=== PATIENT | female | born 1945 | race Caucasian/White ===

== ENCOUNTER 2022-05-12 22:19 | Observation (INO) | payer MEDICARE ==
[2022-05-12] MEDS ORDERED: Sodium Chloride 0.9% 1000 ML 1,000 ML IV SCH (23:30)
--- NOTE | 2022-05-12 23:35 | ERPHSYRPT ---
- History of Present Illness Time Seen by Provider: 05/12/22 22:26 Source: patient, family Exam Limitations: no limitations Patient Subjective Stated Complaint: pt states "I was sitting in the chair and was getting up to the bathroom. I didn't feel well and had to sit back down. 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 As per patient/ she was sitting on the table and working on her iPad, started to feel warm/flushed followed by weakness all over and went down almost passed out but her got her. She again had another episode lasting for 10 minutes when she was completely out. No seizure-like act ivity noticed. She was awake alert and oriented immediately after with no confusion, numbness tingling or focal weakness. She reports she felt as if her blood sugar was low but it was 95. She denies any chest pain palpitations, shortness of breath, feeling dizzy lightheaded, blurry vision before or after the episode. No nausea or vomiting. She is not complaining of anything but mild headache all over. Timing/Duration: hour(s) (1), sudden, improved Severity: moderate Character of Deficits: none Deficits: no difficulties Baseline/Normal Cognition: alert oriented x 3 Current Cognition: alert oriented x 3 Baseline Gait: walks w/o assistance Associated Symptoms: loss of consciousness, headache, No confusion, No fever, No nausea, No vomiting, No weakness, No insomnia, No muscle spasms, No n umbness/tingling in legs/feet, No paresthesia, No ringing in ears, No seizures, No slurred speech, No trouble walking, No vision changes, No chest pain Allergies/Adverse Reactions: No Known Drug Allergies Allergy (Unverified 05/12/22 22:56) Hx Tetanus, Diphtheria Vaccination/Date Given: No Hx Influenza Vaccination/Date Given: Yes Hx Pneumococcal Vaccination/Date Given: No Immunizations Up to Date: No Travel Risk - International Travel Have you traveled outside of the country in past 3 weeks: No - Coronavirus Screening Are you exhibiting any of the following symptoms?: No Close contact with a COVID-19 positive Pt in past 14-21 Days: No - Vaccine Status Have you recieved a Covid-19 vaccination: Yes 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: [employer] - Vaccination Dates Date of 2cond Vaccination (if applicable): 2020 - Review of Systems Constitutional: Fatigue, Weakness Eyes: No Symptoms Ears, Nose, & Throat: No Symptoms Respiratory: No Symptoms Cardiac: No Symptoms Abdominal/Gastrointestinal: No Symptoms Genitourinary Symptoms: No Symptoms Musculoskeletal: No Symptoms Skin: No Symptoms Neurological: Headache Psychological: No Symptoms Endocrine: No Symptoms Hematologic/Lymphatic: No Symptoms Immunological/Allergic: No Symptoms - Past Medical History Pertinent Past Medical History: Yes Neurological History: No Pertinent History ENT History: Cataracts Cardiac History: High Cholesterol, Hypertension Respiratory History: No Pertinent History Endocrine Medical History: Diabetes Type II Musculoskeletal History: No Pertinent History GI Medical History: No Pertinent History History: No Pertinent History Psycho-Social History: No Pertinent History Female Reproductive Disorders: No Pertinent History - Past Surgical History Past Surgical History: Yes Musculoskeletal: Orthopedic Surgery Female Surgical History: Hysterectomy Other Surgical History: artery bipass, neck surgery - Social History Smoking Status: Smoker, status unknown Exposure to second hand smoke: No Drug Use: none Patient Lives Alone: No - Nursing Vital Signs Nursing Vital Signs: Initial Vital Signs Temperature 96.8 F 05/12/22 22:57 Pulse Rate 76 05/12/22 22:57 Respiratory Rate 18 05/12/22 22:57 Blood Pressure 131/86 05/12/22 22:57 O2 Sat by Pulse Oximetry 99 05/12/22 22:57 Pain Scale Pain Intensity 0 - Neri Coma Scale Best Eye Response (Neri): (4) open spontaneously Best Verbal Response ([place]): (5) oriented Best Motor Response (Neri): (6) obeys commands [place] Total: 15 - Physical Exam General Appearance: no apparent distress, alert Eye Exam: bilateral eye: normal inspection, PERRL, EOMI Ears, Nose, Throat Exam: normal ENT inspection, TMs normal, pharynx normal, moist mucous membranes Neck Exam: normal inspection, non-tender, supple, full range of motion Respiratory: normal breath sounds, lungs clear Cardiovascular: regular rate/rhythm, normal heart sounds Gastrointestinal: soft, normal bowel sounds, No tenderness Back Exam: normal inspection, normal range of motion Extremity Exam: normal inspection, normal range of motion Mental Status: alert, oriented x 3, cooperative, 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 Exam: normal hearing, normal speech, PERRL Coordination/Gait: normal finger to nose, normal cerebellar function Motor/Sensory: no motor deficit, no sensory deficit, no pronator drift, negative Babinski's sign DTR: bicep (R): 2+, bicep (L): 2+, knee (R): 2+, knee (L): 2+ Skin Exam: normal color SpO2 Interpretation: normal SpO2: 99 O2 Delivery: Room Air - Course EKG Interpreted by Me: RATE (65), Sinus Rhythm, NORMAL AXIS, NORMAL INTERVALS, NORMAL QRS Ordered Tests: Active Orders 24 hr Category Date Time Status Nutritionist STAT Care 05/12/22 23:19 Active EKG-ER Only STAT Care 05/12/22 23:18 Active IV Insertion STAT Care 05/12/22 23:18 Active Orthostatic Vital Signs STAT Care 05/12/22 23:18 Active POCT Glucose Check STAT Care 05/12/22 23:18 Active CERVICAL SPINE WO CONTRAST [CT] Routine Exams 05/13/22 00:45 Taken CHEST 1 VIEW (PORTABLE) Routine Exams 05/13/22 00:33 Taken HEAD WITHOUT CONTRAST [CT] Stat Exams 05/12/22 23:18 Taken BLOOD CULTURE Stat Lab 05/12/22 23:35 Received BNP [NT PRO BNP] Stat Lab 05/12/22 23:19 Completed CBC W DIFF Stat Lab 05/12/22 23:20 Completed CMP Stat Lab 05/12/22 23:19 Completed Lactic Acid Stat Lab 05/12/22 23:19 Ordered MAG [MAGNESIUM] Stat Lab 05/12/22 23:19 Completed POCT GLUCOSE Stat Lab 05/12/22 23:15 Completed TROPONIN Q3H Lab 05/12/22 23:30 Completed TROPONIN Q3H Lab 05/13/22 01:27 Received TROPONIN Q3H Lab 05/13/22 05:30 Ordered Medication Summary Generic Name Dose Route Start Last Admin Trade Name Freq PRN Reason Stop Dose Admin Sodium Chloride 1,000 mls @ 125 mls/hr 05/12/22 23:30 05/12/22 23:32 Sodium Chloride 0.9% 1000 Ml IV 06/11/22 23:29 125 mls/hr .Q8H JUAN LUIS Administration Lab/Rad Data: Laboratory Result Diagrams 05/12/22 23:20 05/12/22 23:19 Laboratory Results 05/12/22 05/12/22 05/12/22 Range/Units 23:44 23:30 23:20 WBC 10.7 H (4.0-10.5) x10^3/uL RBC 3.60 L (4.1-5.4) x10^6/uL Hgb 11.6 L (12.0-16.0) g/dL Hct 35.1 (35-47) % MCV 97.5 (78-100) fL MCH 32.2 H (26-32) pg MCHC 33.0 (32-36) g/dL RDW 11.5 (11.5-14.0) % Plt Count 219 (150-450) x10^3/uL MPV 9.5 (7.5-11.0) fL Gran % 66.9 H (36.0-66.0) % Immature Gran % (Auto) 0.4 (0.00-0.4) % Nucleat RBC Rel Count 0.0 (0.00-0.1) % Eos # (Auto) 0.22 (0-0.5) x10^3/uL Immature Gran # (Auto) 0.04 H (0.00-0.03) x10^3u/L Absolute Lymphs (auto) 2.20 (1.0-4.6) x10^3/uL Absolute Monos (auto) 1.04 (0.0-1.3) x10^3/uL Absolute Nucleated RBC 0.00 (0.00-0.01) x10^3u/L Lymphocytes % 20.5 L (24.0-44.0) % Monocytes % 9.7 (0.0-12.0) % Eosinophils % 2.1 (0.00-5.0) % Basophils % 0.4 (0.0-0.4) % Absolute Granulocytes 7.19 H (1.4-6.9) x10^3/uL Basophils # 0.04 (0-0.4) x10^3/uL Sodium (137-145) mmol/L Potassium (3.5-5.1) mmol/L Chloride (98-107) mmol/L Carbon Dioxide (22-30) mmol/L Anion Gap (5-15) MEQ/L BUN (7-17) mg/dL Creatinine (0.52-1.04) mg/dL Estimated GFR ML/MIN Glucose (74-106) mg/dL POC Glucometer (74 to 106) mg/dL Calcium (8.4-10.2) mg/dL Magnesium (1.6-2.3) mg/dL Total Bilirubin (0.2-1.3) mg/dL AST (14-36) U/L ALT (0-35) U/L Alkaline Phosphatase (38-126) U/L Troponin I < 0.012 (0.000-0.034) ng/mL NT-Pro-B Natriuret Pep (0-1800) pg/mL Serum Total Protein (6.3-8.2) g/dL Albumin (3.5-5.0) g/dL Influenza Type A Ag NEGATIVE (NEGATIVE) Influenza Type B Ag NEGATIVE (NEGATIVE) RSV (PCR) NEGATIVE (Negative) SARS-CoV-2 (PCR) NEGATIVE (NEGATIVE) 05/12/22 05/12/22 Range/Units 23:19 23:15 WBC (4.0-10.5) x10^3/uL RBC (4.1-5.4) x10^6/uL Hgb (12.0-16.0) g/dL Hct (35-47) % MCV (78-100) fL MCH (26-32) pg MCHC (32-36) g/dL RDW (11.5-14.0) % Plt Count (150-450) x10^3/uL MPV (7.5-11.0) fL Gran % (36.0-66.0) % Immature Gran % (Auto) (0.00-0.4) % Nucleat RBC Rel Count (0.00-0.1) % Eos # (Auto) (0-0.5) x10^3/uL Immature Gran # (Auto) (0.00-0.03) x10^3u/L Absolute Lymphs (auto) (1.0-4.6) x10^3/uL Absolute Monos (auto) (0.0-1.3) x10^3/uL Absolute Nucleated RBC (0.00-0.01) x10^3u/L Lymphocytes % (24.0-44.0) % Monocytes % (0.0-12.0) % Eosinophils % (0.00-5.0) % Basophils % (0.0-0.4) % Absolute Granulocytes (1.4-6.9) x10^3/uL Basophils # (0-0.4) x10^3/uL Sodium 136 L (137-145) mmol/L Potassium 4.0 (3.5-5.1) mmol/L Chloride 103 (98-107) mmol/L Carbon Dioxide 29 (22-30) mmol/L Anion Gap 8.9 (5-15) MEQ/L BUN 21 H (7-17) mg/dL Creatinine 0.74 (0.52-1.04) mg/dL Estimated GFR > 60.0 ML/MIN Glucose 174 H (74-106) mg/dL POC Glucometer 147 H (74 to 106) mg/dL Calcium 9.1 (8.4-10.2) mg/dL Magnesium 1.9 (1.6-2.3) mg/dL Total Bilirubin 0.40 (0.2-1.3) mg/dL AST 25 (14-36) U/L ALT 29 (0-35) U/L Alkaline Phosphatase 63 (38-126) U/L Troponin I (0.000-0.034) ng/mL NT-Pro-B Natriuret Pep 68.2 (0-1800) pg/mL Serum Total Protein 6.5 (6.3-8.2) g/dL Albumin 4.1 (3.5-5.0) g/dL Influenza Type A Ag (NEGATIVE) Influenza Type B Ag (NEGATIVE) RSV (PCR) (Negative) SARS-CoV-2 (PCR) (NEGATIVE) - Progress Progress: improved Progress Note: 05/13/22 01:43 76-year-old is evaluated for syncopal episode prior to arrival. She has a nonfocal neuro exam. Obtain CT head and cervical spine which are negative for any acute findings. Grossly unremarkable work-up including orthostatics. Started on gentle hydration. EKG normal sinus rhythm with no acute ischemic changes and negative initial troponins. Chest x-ray no obvious infiltrate, questionable airspace disease on the right lower quadrant but patient is not in any distress and lung sounds clear to auscultation. Do not know the exact cause of her syncope, needs further work-up, discussed with Dr. Woodruff and patient is excepted for admission. Discussed with : Keith Will see patient in: hospital (observation) Counseled pt/family regarding: lab results, diagnosis, rad results, smoking cessation - Departure Departure Disposition: Observation Clinical Impression: Syncope and collapse Condition: Stable Critical Care Time: No Referrals: VISHNU PROCTOR [Primary Care Provider] - Follow up/PCP as directed
[2022-05-12 23:44] LABS: Absolute Neutrophil Ct (ANC) 7.19 x10^3/uL (1.4-6.9); Basophil (Absolute #) 0.04 x10^3/uL (0-0.4); Eosinophil % 2.1 % (0.00-5.0); Eosinophil (Absolute #) 0.22 x10^3/uL (0-0.5); Hematocrit 35.1 % (35-47); Hemoglobin 11.6 g/dL (12.0-16.0); Lymphocytes % 20.5 % (24.0-44.0); Mean Cell Volume 97.5 fL (78-100); Mean Corpuscular Hemoglobin 32.2 pg (26-32); Mean Platelet Volume 9.5 fL (7.5-11.0); Monocyte (Absolute #) 1.04 x10^3/uL (0.0-1.3); Monocytes % 9.7 % (0.0-12.0); Neutrophil % 66.9 % (36.0-66.0); Platelet Count 219 x10^3/uL (150-450); Red Cell Distribution Width 11.5 % (11.5-14.0); White Blood Count 10.7 x10^3/uL (4.0-10.5)
[2022-05-13 00:05] LABS: ALBUMIN 4.1 g/dL (3.5-5.0); ALKALINE PHOSPHATASE 63 U/L (38-126); ANION GAP 8.9 MEQ/L (5-15); BLOOD UREA NITROGEN 21 mg/dL (7-17); CHLORIDE 103 mmol/L (98-107); Calcium 9.1 mg/dL (8.4-10.2); Carbon Dioxide 29 mmol/L (22-30); Creatinine 1 0.74 mg/dL (0.52-1.04); EST GLOMERULAR FILTRATION RATE > 60.0 ML/MIN; Glucose 174 mg/dL (74-106); MAGNESIUM 1.9 mg/dL (1.6-2.3); NT PRO BNP 68.2 pg/mL (0-1800); SGOT/AST 25 U/L (14-36); SGPT/ALT 29 U/L (0-35); SODIUM 136 mmol/L (137-145); Total Protein 6.5 g/dL (6.3-8.2)
[2022-05-13 00:23] LABS: INFLUENZA A NEGATIVE (NEGATIVE); INFLUENZA B NEGATIVE (NEGATIVE); RESPIRATORY SYNCTIAL VIRUS NEGATIVE (Negative); SARS-CoV-2 Xpert Express NEGATIVE (NEGATIVE)
[2022-05-13 02:30] LABS: Appearance CLEAR (CLEAR); Bilirubin NEGATIVE (NEGATIVE); Dipstick done @ ? MAIN LAB; Glucose NEGATIVE (NEGATIVE); Ketones NEGATIVE (NEGATIVE); Nitrite NEGATIVE (NEGATIVE); Protein,Urine Dip NEGATIVE (Negative); RBC NEGATIVE Ery/ul (0-5); Specific Gravity 1.025 (1.005-1.025); Urobilinogen 0.2 mg/dL (0-1)
[2022-05-13] MEDS ORDERED: TYLENOL 325 MG PO PRN (02:33)
[2022-05-13] MEDS ORDERED: DUONEB 0.5-3 MG/3 ml Neb IH PRN (02:33)
[2022-05-13] MEDS ORDERED: HUMALOG SQ PRN (02:33)
[2022-05-13 02:36] LABS: Epithelial Cells RARE /HPF (FEW); Mucus SLIGHT /HPF (NEGATIVE); RBC 0-2 /HPF (0-2)
[2022-05-13 02:38] LABS: Crystals Unidentified >100 /HPF (NEGATIVE); Urine Cultured Indicated? NO
[2022-05-13 04:22] VITALS: PULSE 66
[2022-05-13 06:00] LABS: Absolute Neutrophil Ct (ANC) 4.18 x10^3/uL (1.4-6.9); Basophil (Absolute #) 0.03 x10^3/uL (0-0.4); Eosinophil % 1.9 % (0.00-5.0); Eosinophil (Absolute #) 0.15 x10^3/uL (0-0.5); Hematocrit 32.7 % (35-47); Hemoglobin 10.8 g/dL (12.0-16.0); Lymphocyte (Absolute #) 2.57 x10^3/uL (1.0-4.6); Lymphocytes % 33.2 % (24.0-44.0); Mean Cell Volume 95.6 fL (78-100); Mean Corpuscular Hemoglobin 31.6 pg (26-32); Mean Platelet Volume 9.4 fL (7.5-11.0); Monocyte (Absolute #) 0.77 x10^3/uL (0.0-1.3); Neutrophil % 54.1 % (36.0-66.0); Platelet Count 198 x10^3/uL (150-450); Red Blood Count 3.42 x10^6/uL (4.1-5.4); Red Cell Distribution Width 11.4 % (11.5-14.0); White Blood Count 7.7 x10^3/uL (4.0-10.5)
[2022-05-13 06:22] LABS: ALBUMIN 3.7 g/dL (3.5-5.0); ALKALINE PHOSPHATASE 49 U/L (38-126); ANION GAP 8.5 MEQ/L (5-15); BLOOD UREA NITROGEN 16 mg/dL (7-17); CHLORIDE 108 mmol/L (98-107); Calcium 8.5 mg/dL (8.4-10.2); Carbon Dioxide 25 mmol/L (22-30); Creatinine 1 0.54 mg/dL (0.52-1.04); EST GLOMERULAR FILTRATION RATE > 60.0 ML/MIN; Glucose 105 mg/dL (74-106); Potassium 3.7 mmol/L (3.5-5.1); SGOT/AST 22 U/L (14-36); SGPT/ALT 25 U/L (0-35); SODIUM 138 mmol/L (137-145); Total Protein 6.1 g/dL (6.3-8.2)
--- NOTE | 2022-05-13 06:35 | XRAY ---
Indication: Syncope. Comparison: None Portable chest hyperinflated with mild right infiltrate/atelectasis. Remaining heart and lungs unremarkable. Bony thorax intact with osteopenia, degenerative changes, and partially visualized cervical fusion hardware.
--- NOTE | 2022-05-13 06:35 | XRAY ---
Indication: Syncope. Status post fall. Multiple contiguous axial images obtained through the head without contrast. Comparison: None Age-appropriate global atrophy and mild periventricular degenerative micro-ischemia bilaterally. No acute intracranial hemorrhage, abnormal extra-axial fluid collection, or mass effect. Fourth ventricle is midline without hydrocephalus. Bony calvarium intact. Visualized paranasal sinuses and mastoid air cells are clear. Impression: Nonacute senile brain. Comment: Preliminary interpretation made by [facility]. No critical discrepancy.
--- NOTE | 2022-05-13 06:37 | XRAY ---
Indication: Syncope. Status post fall. Multiple contiguous axial images obtained through the head without contrast. Comparison: None Age-related osteopenia. Axial images negative for acute fracture, suspicious bone lesions, or spinal canal stenosis. Minimal C6-C7 degenerative endplate spurring and mild multilevel bilateral degenerative facet arthropathy. Also lentil axial degenerative arthropathy. Previous C4-C6 fusion with anterior plate/screws. Sagittal and coronal reformatted images demonstrate normal alignment with C6-C7 disc space narrowing. No acute compression fracture, subluxation, or jump facet. Normal appearing craniocervical junction. Visualized noncontrasted soft tissues are unremarkable. Impression: 1. Negative acute fracture/subluxation. 2. Multilevel degenerative changes, osteopenia, and C4-C6 anterior fusion. Comment: Preliminary interpretation made by [facility]. No critical discrepancy.
--- NOTE | 2022-05-13 08:08 | PCM.SSS ---
History of Present Illness - Chief Complaint Chief Complaint: SYNCOPE History of Present Illness: is a 76 year old female patient of Dr Proctor, she came to the ER for evaluation after a syncopal episode at home, it was witness by her . She began feeling dizzy and lightheaded like her blood sugar was low, she took a spoon of peanut butter to eat and sat back down, she had a brief loss of consciousness, no seizure. TX has been ruled out, she has had no episodes on telemetry and insists to go home today. She follows with Dr Elaine for routine care but no history of CAD in the past per patient. - Review of Systems Cardiac: Syncope, No Chest Pain, No Palpitations Abdominal/Gastrointestinal: No Abdominal Pain, No Nausea, No Vomiting, No Diarrhea Genitourinary Symptoms: No Dysuria All Other Systems: Reviewed and Negative Medications & Allergies Home Medications: Home Medication List Alendronate Sodium [Fosamax] 70 mg PO UD 05/13/22 [History Confirmed 05/13/22] Aspirin EC 81 mg [Ecotrin 81 mg] 81 mg PO DAILY 05/13/22 [History Confirmed 05/13/22] Atorvastatin Calcium 40 mg PO HS 05/13/22 [History Confirmed 05/13/22] Isosorbide Dinitrate 30 mg PO DAILY 05/13/22 [History Confirmed 05/13/22] Lisinopril 10 mg [Zestril 10 MG] 10 mg PO DAILY 05/13/22 [History Confirmed 05/13/22] Multivitamin 1 each PO DAILY 05/13/22 [History Confirmed 05/13/22] Non-Formulary Drug [Non-Formulary Item] 1 tab PO DAILY 05/13/22 [History Confirmed 05/13/22] Allergies/Adverse Reactions: Allergies Allergy/AdvReac Type Severity Reaction Status Date / Time No Known Drug Allergies Allergy Verified 05/13/22 03:22 - Past Medical History Past Medical History: Yes Neurological History: No Pertinent History ENT History: Cataracts Cardiac History: High Cholesterol, Hypertension Respiratory History: No Pertinent History Endocrine Medical History: Diabetes Type II Musculoskelatal History: Arthritis GI Medical History: No Pertinent History History: No Pertinent History Pyscho-Social History: No Pertinent History Reproductive Disorders: No Pertinent History - Female History Are you now?: No - Past Surgical History Past Surgical History: Yes Neuro Surgical History: No Pertinent History Cardiac History: Vascular Surgery Respiratory Surgery: No Pertinent History GI Surgical History: No Pertinent History Genitourinary Surgical Hx: No Pertinent History Musculskeletal Surgical Hx: Orthopedic Surgery Female Surgical History: Hysterectomy Other Surgical History: TOTAL HYSTERECTOMY 2001? artery bipass LEFT FEMORAL 2002? (HAD A BLOCK), neck surgery DISK ISSUES - Social History Smoking Status: Current every day smoker How long have you smoked: 35 YEARS Exposure to second hand smoke: Yes Alcohol: None Drug Use: none - Physical Exam Vital Signs: Vital Signs - 24 hr Temp Pulse Resp BP Pulse Ox 05/13/22 04:00 98 F 66 18 164/70 96 05/13/22 03:55 65 18 93 L 05/13/22 03:17 97.5 F 73 20 169/69 95 05/13/22 02:00 96.8 F 70 151/64 96 05/13/22 01:46 99 05/13/22 00:00 68 129/119 96 05/12/22 23:31 67 22 143/52 99 05/12/22 22:57 96.8 F 76 18 131/86 99 General Appearance: no apparent distress Neurologic Exam: alert, oriented x 3 Respiratory Exam: normal breath sounds, lungs clear, No respiratory distress Cardiovascular Exam: regular rate/rhythm, normal heart sounds, normal peripheral pulses Gastrointestinal/Abdomen Exam: soft Extremity Exam: normal inspection, normal range of motion, pelvis stable Skin Exam: normal color, warm, dry, No rash Results - Labs Lab/Micro Results: Lab Results-Last 24 Hours 05/12/22 05/12/22 05/12/22 Range/Units 01:37 23:15 23:19 WBC (4.0-10.5) x10^3/uL RBC (4.1-5.4) x10^6/uL Hgb (12.0-16.0) g/dL Hct (35-47) % MCV (78-100) fL MCH (26-32) pg MCHC (32-36) g/dL RDW (11.5-14.0) % Plt Count (150-450) x10^3/uL MPV (7.5-11.0) fL Gran % (36.0-66.0) % Immature Gran % (Auto) (0.00-0.4) % Nucleat RBC Rel Count (0.00-0.1) % Eos # (Auto) (0-0.5) x10^3/uL Immature Gran # (Auto) (0.00-0.03) x10^3u/L Absolute Lymphs (auto) (1.0-4.6) x10^3/uL Absolute Monos (auto) (0.0-1.3) x10^3/uL Absolute Nucleated RBC (0.00-0.01) x10^3u/L Lymphocytes % (24.0-44.0) % Monocytes % (0.0-12.0) % Eosinophils % (0.00-5.0) % Basophils % (0.0-0.4) % Absolute Granulocytes (1.4-6.9) x10^3/uL Basophils # (0-0.4) x10^3/uL Sodium 136 L (137-145) mmol/L Potassium 4.0 (3.5-5.1) mmol/L Chloride 103 (98-107) mmol/L Carbon Dioxide 29 (22-30) mmol/L Anion Gap 8.9 (5-15) MEQ/L BUN 21 H (7-17) mg/dL Creatinine 0.74 (0.52-1.04) mg/dL Estimated GFR > 60.0 ML/MIN Glucose 174 H (74-106) mg/dL POC Glucometer 147 H (74 to 106) mg/dL Lactic Acid (0.4-2.0) Calcium 9.1 (8.4-10.2) mg/dL Magnesium 1.9 (1.6-2.3) mg/dL Total Bilirubin 0.40 (0.2-1.3) mg/dL AST 25 (14-36) U/L ALT 29 (0-35) U/L Alkaline Phosphatase 63 (38-126) U/L Troponin I (0.000-0.034) ng/mL NT-Pro-B Natriuret Pep 68.2 (0-1800) pg/mL Serum Total Protein 6.5 (6.3-8.2) g/dL Albumin 4.1 (3.5-5.0) g/dL Urinalys Dipstick Clnc MAIN LAB Urine Color YELLOW (YELLOW) Urine Appearance CLEAR (CLEAR) Urine pH 6.0 (5-6) Ur Specific [place] 1.025 (1.005-1.025) POC Urine Protein Conf NEGATIVE (Negative) Urine Ketones NEGATIVE (NEGATIVE) Urine Nitrite NEGATIVE (NEGATIVE) Urine Bilirubin NEGATIVE (NEGATIVE) Urine Urobilinogen 0.2 (0-1) mg/dL Urine Leukocytes TRACE (NEGATIVE) Urine WBC (Auto) 3-5 (0-5) /HPF Urine RBC (Auto) 0-2 (0-2) /HPF U Epithel Cells (Auto) RARE (FEW) /HPF Urine Bacteria (Auto) NONE (NEGATIVE) /HPF Urine RBC NEGATIVE (0-5) Jovan/ul Unidentified Crystals >100 (NEGATIVE) /HPF Urine Mucus (Auto) SLIGHT (NEGATIVE) /HPF Ur Culture Indicated? NO Urine Glucose NEGATIVE (NEGATIVE) mg/dL Influenza Type A Ag (NEGATIVE) Influenza Type B Ag (NEGATIVE) RSV (PCR) (Negative) SARS-CoV-2 (PCR) (NEGATIVE) 05/12/22 05/12/22 05/12/22 Range/Units 23:20 23:30 23:44 WBC 10.7 H (4.0-10.5) x10^3/uL RBC 3.60 L (4.1-5.4) x10^6/uL Hgb 11.6 L (12.0-16.0) g/dL Hct 35.1 (35-47) % MCV 97.5 (78-100) fL MCH 32.2 H (26-32) pg MCHC 33.0 (32-36) g/dL RDW 11.5 (11.5-14.0) % Plt Count 219 (150-450) x10^3/uL MPV 9.5 (7.5-11.0) fL Gran % 66.9 H (36.0-66.0) % Immature Gran % (Auto) 0.4 (0.00-0.4) % Nucleat RBC Rel Count 0.0 (0.00-0.1) % Eos # (Auto) 0.22 (0-0.5) x10^3/uL Immature Gran # (Auto) 0.04 H (0.00-0.03) x10^3u/L Absolute Lymphs (auto) 2.20 (1.0-4.6) x10^3/uL Absolute Monos (auto) 1.04 (0.0-1.3) x10^3/uL Absolute Nucleated RBC 0.00 (0.00-0.01) x10^3u/L Lymphocytes % 20.5 L (24.0-44.0) % Monocytes % 9.7 (0.0-12.0) % Eosinophils % 2.1 (0.00-5.0) % Basophils % 0.4 (0.0-0.4) % Absolute Granulocytes 7.19 H (1.4-6.9) x10^3/uL Basophils # 0.04 (0-0.4) x10^3/uL Sodium (137-145) mmol/L Potassium (3.5-5.1) mmol/L Chloride (98-107) mmol/L Carbon Dioxide (22-30) mmol/L Anion Gap (5-15) MEQ/L BUN (7-17) mg/dL Creatinine (0.52-1.04) mg/dL Estimated GFR ML/MIN Glucose (74-106) mg/dL POC Glucometer (74 to 106) mg/dL Lactic Acid (0.4-2.0) Calcium (8.4-10.2) mg/dL Magnesium (1.6-2.3) mg/dL Total Bilirubin (0.2-1.3) mg/dL AST (14-36) U/L ALT (0-35) U/L Alkaline Phosphatase (38-126) U/L Troponin I < 0.012 (0.000-0.034) ng/mL NT-Pro-B Natriuret Pep (0-1800) pg/mL Serum Total Protein (6.3-8.2) g/dL Albumin (3.5-5.0) g/dL Urinalys Dipstick Clnc Urine Color (YELLOW) Urine Appearance (CLEAR) Urine pH (5-6) Ur Specific [place] (1.005-1.025) POC Urine Protein Conf (Negative) Urine Ketones (NEGATIVE) Urine Nitrite (NEGATIVE) Urine Bilirubin (NEGATIVE) Urine Urobilinogen (0-1) mg/dL Urine Leukocytes (NEGATIVE) Urine WBC (Auto) (0-5) /HPF Urine RBC (Auto) (0-2) /HPF U Epithel Cells (Auto) (FEW) /HPF Urine Bacteria (Auto) (NEGATIVE) /HPF Urine RBC (0-5) Jovan/ul Unidentified Crystals (NEGATIVE) /HPF Urine Mucus (Auto) (NEGATIVE) /HPF Ur Culture Indicated? Urine Glucose (NEGATIVE) mg/dL Influenza Type A Ag NEGATIVE (NEGATIVE) Influenza Type B Ag NEGATIVE (NEGATIVE) RSV (PCR) NEGATIVE (Negative) SARS-CoV-2 (PCR) NEGATIVE (NEGATIVE) 05/13/22 05/13/22 05/13/22 Range/Units 01:27 02:15 05:59 WBC (4.0-10.5) x10^3/uL RBC (4.1-5.4) x10^6/uL Hgb (12.0-16.0) g/dL Hct (35-47) % MCV (78-100) fL MCH (26-32) pg MCHC (32-36) g/dL RDW (11.5-14.0) % Plt Count (150-450) x10^3/uL MPV (7.5-11.0) fL Gran % (36.0-66.0) % Immature Gran % (Auto) (0.00-0.4) % Nucleat RBC Rel Count (0.00-0.1) % Eos # (Auto) (0-0.5) x10^3/uL Immature Gran # (Auto) (0.00-0.03) x10^3u/L Absolute Lymphs (auto) (1.0-4.6) x10^3/uL Absolute Monos (auto) (0.0-1.3) x10^3/uL Absolute Nucleated RBC (0.00-0.01) x10^3u/L Lymphocytes % (24.0-44.0) % Monocytes % (0.0-12.0) % Eosinophils % (0.00-5.0) % Basophils % (0.0-0.4) % Absolute Granulocytes (1.4-6.9) x10^3/uL Basophils # (0-0.4) x10^3/uL Sodium (137-145) mmol/L Potassium (3.5-5.1) mmol/L Chloride (98-107) mmol/L Carbon Dioxide (22-30) mmol/L Anion Gap (5-15) MEQ/L BUN (7-17) mg/dL Creatinine (0.52-1.04) mg/dL Estimated GFR ML/MIN Glucose (74-106) mg/dL POC Glucometer (74 to 106) mg/dL Lactic Acid 1.9 (0.4-2.0) Calcium (8.4-10.2) mg/dL Magnesium (1.6-2.3) mg/dL Total Bilirubin (0.2-1.3) mg/dL AST (14-36) U/L ALT (0-35) U/L Alkaline Phosphatase (38-126) U/L Troponin I < 0.012 < 0.012 (0.000-0.034) ng/mL NT-Pro-B Natriuret Pep (0-1800) pg/mL Serum Total Protein (6.3-8.2) g/dL Albumin (3.5-5.0) g/dL Urinalys Dipstick Clnc Urine Color (YELLOW) Urine Appearance (CLEAR) Urine pH (5-6) Ur Specific [place] (1.005-1.025) POC Urine Protein Conf (Negative) Urine Ketones (NEGATIVE) Urine Nitrite (NEGATIVE) Urine Bilirubin (NEGATIVE) Urine Urobilinogen (0-1) mg/dL Urine Leukocytes (NEGATIVE) Urine WBC (Auto) (0-5) /HPF Urine RBC (Auto) (0-2) /HPF U Epithel Cells (Auto) (FEW) /HPF Urine Bacteria (Auto) (NEGATIVE) /HPF Urine RBC (0-5) Jovan/ul Unidentified Crystals (NEGATIVE) /HPF Urine Mucus (Auto) (NEGATIVE) /HPF Ur Culture Indicated? Urine Glucose (NEGATIVE) mg/dL Influenza Type A Ag (NEGATIVE) Influenza Type B Ag (NEGATIVE) RSV (PCR) (Negative) SARS-CoV-2 (PCR) (NEGATIVE) 05/13/22 05/13/22 05/13/22 Range/Units 05:59 05:59 07:45 WBC 7.7 (4.0-10.5) x10^3/uL RBC 3.42 L (4.1-5.4) x10^6/uL Hgb 10.8 L (12.0-16.0) g/dL Hct 32.7 L (35-47) % MCV 95.6 (78-100) fL MCH 31.6 (26-32) pg MCHC 33.0 (32-36) g/dL RDW 11.4 L (11.5-14.0) % Plt Count 198 (150-450) x10^3/uL MPV 9.4 (7.5-11.0) fL Gran % 54.1 (36.0-66.0) % Immature Gran % (Auto) 0.4 (0.00-0.4) % Nucleat RBC Rel Count 0.0 (0.00-0.1) % Eos # (Auto) 0.15 (0-0.5) x10^3/uL Immature Gran # (Auto) 0.03 (0.00-0.03) x10^3u/L Absolute Lymphs (auto) 2.57 (1.0-4.6) x10^3/uL Absolute Monos (auto) 0.77 (0.0-1.3) x10^3/uL Absolute Nucleated RBC 0.00 (0.00-0.01) x10^3u/L Lymphocytes % 33.2 (24.0-44.0) % Monocytes % 10.0 (0.0-12.0) % Eosinophils % 1.9 (0.00-5.0) % Basophils % 0.4 (0.0-0.4) % Absolute Granulocytes 4.18 (1.4-6.9) x10^3/uL Basophils # 0.03 (0-0.4) x10^3/uL Sodium 138 (137-145) mmol/L Potassium 3.7 (3.5-5.1) mmol/L Chloride 108 H (98-107) mmol/L Carbon Dioxide 25 (22-30) mmol/L Anion Gap 8.5 (5-15) MEQ/L BUN 16 (7-17) mg/dL Creatinine 0.54 (0.52-1.04) mg/dL Estimated GFR > 60.0 ML/MIN Glucose 105 (74-106) mg/dL POC Glucometer 90 (74 to 106) mg/dL Lactic Acid (0.4-2.0) Calcium 8.5 (8.4-10.2) mg/dL Magnesium (1.6-2.3) mg/dL Total Bilirubin 0.40 (0.2-1.3) mg/dL AST 22 (14-36) U/L ALT 25 (0-35) U/L Alkaline Phosphatase 49 (38-126) U/L Troponin I (0.000-0.034) ng/mL NT-Pro-B Natriuret Pep (0-1800) pg/mL Serum Total Protein 6.1 L (6.3-8.2) g/dL Albumin 3.7 (3.5-5.0) g/dL Urinalys Dipstick Clnc Urine Color (YELLOW) Urine Appearance (CLEAR) Urine pH (5-6) Ur Specific [place] (1.005-1.025) POC Urine Protein Conf (Negative) Urine Ketones (NEGATIVE) Urine Nitrite (NEGATIVE) Urine Bilirubin (NEGATIVE) Urine Urobilinogen (0-1) mg/dL Urine Leukocytes (NEGATIVE) Urine WBC (Auto) (0-5) /HPF Urine RBC (Auto) (0-2) /HPF U Epithel Cells (Auto) (FEW) /HPF Urine Bacteria (Auto) (NEGATIVE) /HPF Urine RBC (0-5) Jovan/ul Unidentified Crystals (NEGATIVE) /HPF Urine Mucus (Auto) (NEGATIVE) /HPF Ur Culture Indicated? Urine Glucose (NEGATIVE) mg/dL Influenza Type A Ag (NEGATIVE) Influenza Type B Ag (NEGATIVE) RSV (PCR) (Negative) SARS-CoV-2 (PCR) (NEGATIVE) - Radiology Impressions Radiology Exams & Impressions: Radiology Procedures Category Date Time Status CERVICAL SPINE WO CONTRAST [CT] Routine Exams 05/13/22 00:45 Completed CHEST 1 VIEW (PORTABLE) Routine Exams 05/13/22 00:33 Completed HEAD WITHOUT CONTRAST [CT] Stat Exams 05/12/22 23:18 Completed Assessment/Plan (1) Syncope and collapse Current Visit: Yes Status: Acute Assessment & Plan: TX ruled out, nothing concerning on telemetry. history suggestive of hypoglycemia as cause. patient is on a sulfonylurea, will hold that and have her see Dr Proctor Code(s): R55 - SYNCOPE AND COLLAPSE (2) Diabetes mellitus Current Visit: Yes Status: Acute Code(s): E11.9 - TYPE 2 DIABETES MELLITUS WITHOUT COMPLICATIONS Hospital Summary - Vitals & Intake/Output Vital Signs: Vital Signs Temperature 98 F 05/13/22 04:00 Pulse Rate 66 05/13/22 04:00 Respiratory Rate 18 05/13/22 04:00 Blood Pressure 164/70 05/13/22 04:00 O2 Sat by Pulse Oximetry 96 05/13/22 04:00 Intake & Output: Intake & Output 05/10/22 05/11/22 05/12/22 05/13/22 11:59 11:59 11:59 11:59 Intake Total 300 Output Total 400 Balance -100 Weight 52.9 kg - Lab Result Diagrams: 05/13/22 05:59 05/13/22 05:59 Lab Results-Last 24 Hrs: Lab Results-Last 24 Hours 05/12/22 05/12/22 05/12/22 Range/Units 01:37 23:15 23:19 WBC (4.0-10.5) x10^3/uL RBC (4.1-5.4) x10^6/uL Hgb (12.0-16.0) g/dL Hct (35-47) % MCV (78-100) fL MCH (26-32) pg MCHC (32-36) g/dL RDW (11.5-14.0) % Plt Count (150-450) x10^3/uL MPV (7.5-11.0) fL Gran % (36.0-66.0) % Immature Gran % (Auto) (0.00-0.4) % Nucleat RBC Rel Count (0.00-0.1) % Eos # (Auto) (0-0.5) x10^3/uL Immature Gran # (Auto) (0.00-0.03) x10^3u/L Absolute Lymphs (auto) (1.0-4.6) x10^3/uL Absolute Monos (auto) (0.0-1.3) x10^3/uL Absolute Nucleated RBC (0.00-0.01) x10^3u/L Lymphocytes % (24.0-44.0) % Monocytes % (0.0-12.0) % Eosinophils % (0.00-5.0) % Basophils % (0.0-0.4) % Absolute Granulocytes (1.4-6.9) x10^3/uL Basophils # (0-0.4) x10^3/uL Sodium 136 L (137-145) mmol/L Potassium 4.0 (3.5-5.1) mmol/L Chloride 103 (98-107) mmol/L Carbon Dioxide 29 (22-30) mmol/L Anion Gap 8.9 (5-15) MEQ/L BUN 21 H (7-17) mg/dL Creatinine 0.74 (0.52-1.04) mg/dL Estimated GFR > 60.0 ML/MIN Glucose 174 H (74-106) mg/dL POC Glucometer 147 H (74 to 106) mg/dL Lactic Acid (0.4-2.0) Calcium 9.1 (8.4-10.2) mg/dL Magnesium 1.9 (1.6-2.3) mg/dL Total Bilirubin 0.40 (0.2-1.3) mg/dL AST 25 (14-36) U/L ALT 29 (0-35) U/L Alkaline Phosphatase 63 (38-126) U/L Troponin I (0.000-0.034) ng/mL NT-Pro-B Natriuret Pep 68.2 (0-1800) pg/mL Serum Total Protein 6.5 (6.3-8.2) g/dL Albumin 4.1 (3.5-5.0) g/dL Urinalys Dipstick Clnc MAIN LAB Urine Color YELLOW (YELLOW) Urine Appearance CLEAR (CLEAR) Urine pH 6.0 (5-6) Ur Specific [place] 1.025 (1.005-1.025) POC Urine Protein Conf NEGATIVE (Negative) Urine Ketones NEGATIVE (NEGATIVE) Urine Nitrite NEGATIVE (NEGATIVE) Urine Bilirubin NEGATIVE (NEGATIVE) Urine Urobilinogen 0.2 (0-1) mg/dL Urine Leukocytes TRACE (NEGATIVE) Urine WBC (Auto) 3-5 (0-5) /HPF Urine RBC (Auto) 0-2 (0-2) /HPF U Epithel Cells (Auto) RARE (FEW) /HPF Urine Bacteria (Auto) NONE (NEGATIVE) /HPF Urine RBC NEGATIVE (0-5) Jovan/ul Unidentified Crystals >100 (NEGATIVE) /HPF Urine Mucus (Auto) SLIGHT (NEGATIVE) /HPF Ur Culture Indicated? NO Urine Glucose NEGATIVE (NEGATIVE) mg/dL Influenza Type A Ag (NEGATIVE) Influenza Type B Ag (NEGATIVE) RSV (PCR) (Negative) SARS-CoV-2 (PCR) (NEGATIVE) 05/12/22 05/12/22 05/12/22 Range/Units 23:20 23:30 23:44 WBC 10.7 H (4.0-10.5) x10^3/uL RBC 3.60 L (4.1-5.4) x10^6/uL Hgb 11.6 L (12.0-16.0) g/dL Hct 35.1 (35-47) % MCV 97.5 (78-100) fL MCH 32.2 H (26-32) pg MCHC 33.0 (32-36) g/dL RDW 11.5 (11.5-14.0) % Plt Count 219 (150-450) x10^3/uL MPV 9.5 (7.5-11.0) fL Gran % 66.9 H (36.0-66.0) % Immature Gran % (Auto) 0.4 (0.00-0.4) % Nucleat RBC Rel Count 0.0 (0.00-0.1) % Eos # (Auto) 0.22 (0-0.5) x10^3/uL Immature Gran # (Auto) 0.04 H (0.00-0.03) x10^3u/L Absolute Lymphs (auto) 2.20 (1.0-4.6) x10^3/uL Absolute Monos (auto) 1.04 (0.0-1.3) x10^3/uL Absolute Nucleated RBC 0.00 (0.00-0.01) x10^3u/L Lymphocytes % 20.5 L (24.0-44.0) % Monocytes % 9.7 (0.0-12.0) % Eosinophils % 2.1 (0.00-5.0) % Basophils % 0.4 (0.0-0.4) % Absolute Granulocytes 7.19 H (1.4-6.9) x10^3/uL Basophils # 0.04 (0-0.4) x10^3/uL Sodium (137-145) mmol/L Potassium (3.5-5.1) mmol/L Chloride (98-107) mmol/L Carbon Dioxide (22-30) mmol/L Anion Gap (5-15) MEQ/L BUN (7-17) mg/dL Creatinine (0.52-1.04) mg/dL Estimated GFR ML/MIN Glucose (74-106) mg/dL POC Glucometer (74 to 106) mg/dL Lactic Acid (0.4-2.0) Calcium (8.4-10.2) mg/dL Magnesium (1.6-2.3) mg/dL Total Bilirubin (0.2-1.3) mg/dL AST (14-36) U/L ALT (0-35) U/L Alkaline Phosphatase (38-126) U/L Troponin I < 0.012 (0.000-0.034) ng/mL NT-Pro-B Natriuret Pep (0-1800) pg/mL Serum Total Protein (6.3-8.2) g/dL Albumin (3.5-5.0) g/dL Urinalys Dipstick Clnc Urine Color (YELLOW) Urine Appearance (CLEAR) Urine pH (5-6) Ur Specific [place] (1.005-1.025) POC Urine Protein Conf (Negative) Urine Ketones (NEGATIVE) Urine Nitrite (NEGATIVE) Urine Bilirubin (NEGATIVE) Urine Urobilinogen (0-1) mg/dL Urine Leukocytes (NEGATIVE) Urine WBC (Auto) (0-5) /HPF Urine RBC (Auto) (0-2) /HPF U Epithel Cells (Auto) (FEW) /HPF Urine Bacteria (Auto) (NEGATIVE) /HPF Urine RBC (0-5) Jovan/ul Unidentified Crystals (NEGATIVE) /HPF Urine Mucus (Auto) (NEGATIVE) /HPF Ur Culture Indicated? Urine Glucose (NEGATIVE) mg/dL Influenza Type A Ag NEGATIVE (NEGATIVE) Influenza Type B Ag NEGATIVE (NEGATIVE) RSV (PCR) NEGATIVE (Negative) SARS-CoV-2 (PCR) NEGATIVE (NEGATIVE) 05/13/22 05/13/22 05/13/22 Range/Units 01:27 02:15 05:59 WBC (4.0-10.5) x10^3/uL RBC (4.1-5.4) x10^6/uL Hgb (12.0-16.0) g/dL Hct (35-47) % MCV (78-100) fL MCH (26-32) pg MCHC (32-36) g/dL RDW (11.5-14.0) % Plt Count (150-450) x10^3/uL MPV (7.5-11.0) fL Gran % (36.0-66.0) % Immature Gran % (Auto) (0.00-0.4) % Nucleat RBC Rel Count (0.00-0.1) % Eos # (Auto) (0-0.5) x10^3/uL Immature Gran # (Auto) (0.00-0.03) x10^3u/L Absolute Lymphs (auto) (1.0-4.6) x10^3/uL Absolute Monos (auto) (0.0-1.3) x10^3/uL Absolute Nucleated RBC (0.00-0.01) x10^3u/L Lymphocytes % (24.0-44.0) % Monocytes % (0.0-12.0) % Eosinophils % (0.00-5.0) % Basophils % (0.0-0.4) % Absolute Granulocytes (1.4-6.9) x10^3/uL Basophils # (0-0.4) x10^3/uL Sodium (137-145) mmol/L Potassium (3.5-5.1) mmol/L Chloride (98-107) mmol/L Carbon Dioxide (22-30) mmol/L Anion Gap (5-15) MEQ/L BUN (7-17) mg/dL Creatinine (0.52-1.04) mg/dL Estimated GFR ML/MIN Glucose (74-106) mg/dL POC Glucometer (74 to 106) mg/dL Lactic Acid 1.9 (0.4-2.0) Calcium (8.4-10.2) mg/dL Magnesium (1.6-2.3) mg/dL Total Bilirubin (0.2-1.3) mg/dL AST (14-36) U/L ALT (0-35) U/L Alkaline Phosphatase (38-126) U/L Troponin I < 0.012 < 0.012 (0.000-0.034) ng/mL NT-Pro-B Natriuret Pep (0-1800) pg/mL Serum Total Protein (6.3-8.2) g/dL Albumin (3.5-5.0) g/dL Urinalys Dipstick Clnc Urine Color (YELLOW) Urine Appearance (CLEAR) Urine pH (5-6) Ur Specific [place] (1.005-1.025) POC Urine Protein Conf (Negative) Urine Ketones (NEGATIVE) Urine Nitrite (NEGATIVE) Urine Bilirubin (NEGATIVE) Urine Urobilinogen (0-1) mg/dL Urine Leukocytes (NEGATIVE) Urine WBC (Auto) (0-5) /HPF Urine RBC (Auto) (0-2) /HPF U Epithel Cells (Auto) (FEW) /HPF Urine Bacteria (Auto) (NEGATIVE) /HPF Urine RBC (0-5) Jovan/ul Unidentified Crystals (NEGATIVE) /HPF Urine Mucus (Auto) (NEGATIVE) /HPF Ur Culture Indicated? Urine Glucose (NEGATIVE) mg/dL Influenza Type A Ag (NEGATIVE) Influenza Type B Ag (NEGATIVE) RSV (PCR) (Negative) SARS-CoV-2 (PCR) (NEGATIVE) 05/13/22 05/13/22 05/13/22 Range/Units 05:59 05:59 07:45 WBC 7.7 (4.0-10.5) x10^3/uL RBC 3.42 L (4.1-5.4) x10^6/uL Hgb 10.8 L (12.0-16.0) g/dL Hct 32.7 L (35-47) % MCV 95.6 (78-100) fL MCH 31.6 (26-32) pg MCHC 33.0 (32-36) g/dL RDW 11.4 L (11.5-14.0) % Plt Count 198 (150-450) x10^3/uL MPV 9.4 (7.5-11.0) fL Gran % 54.1 (36.0-66.0) % Immature Gran % (Auto) 0.4 (0.00-0.4) % Nucleat RBC Rel Count 0.0 (0.00-0.1) % Eos # (Auto) 0.15 (0-0.5) x10^3/uL Immature Gran # (Auto) 0.03 (0.00-0.03) x10^3u/L Absolute Lymphs (auto) 2.57 (1.0-4.6) x10^3/uL Absolute Monos (auto) 0.77 (0.0-1.3) x10^3/uL Absolute Nucleated RBC 0.00 (0.00-0.01) x10^3u/L Lymphocytes % 33.2 (24.0-44.0) % Monocytes % 10.0 (0.0-12.0) % Eosinophils % 1.9 (0.00-5.0) % Basophils % 0.4 (0.0-0.4) % Absolute Granulocytes 4.18 (1.4-6.9) x10^3/uL Basophils # 0.03 (0-0.4) x10^3/uL Sodium 138 (137-145) mmol/L Potassium 3.7 (3.5-5.1) mmol/L Chloride 108 H (98-107) mmol/L Carbon Dioxide 25 (22-30) mmol/L Anion Gap 8.5 (5-15) MEQ/L BUN 16 (7-17) mg/dL Creatinine 0.54 (0.52-1.04) mg/dL Estimated GFR > 60.0 ML/MIN Glucose 105 (74-106) mg/dL POC Glucometer 90 (74 to 106) mg/dL Lactic Acid (0.4-2.0) Calcium 8.5 (8.4-10.2) mg/dL Magnesium (1.6-2.3) mg/dL Total Bilirubin 0.40 (0.2-1.3) mg/dL AST 22 (14-36) U/L ALT 25 (0-35) U/L Alkaline Phosphatase 49 (38-126) U/L Troponin I (0.000-0.034) ng/mL NT-Pro-B Natriuret Pep (0-1800) pg/mL Serum Total Protein 6.1 L (6.3-8.2) g/dL Albumin 3.7 (3.5-5.0) g/dL Urinalys Dipstick Clnc Urine Color (YELLOW) Urine Appearance (CLEAR) Urine pH (5-6) Ur Specific [place] (1.005-1.025) POC Urine Protein Conf (Negative) Urine Ketones (NEGATIVE) Urine Nitrite (NEGATIVE) Urine Bilirubin (NEGATIVE) Urine Urobilinogen (0-1) mg/dL Urine Leukocytes (NEGATIVE) Urine WBC (Auto) (0-5) /HPF Urine RBC (Auto) (0-2) /HPF U Epithel Cells (Auto) (FEW) /HPF Urine Bacteria (Auto) (NEGATIVE) /HPF Urine RBC (0-5) Jovan/ul Unidentified Crystals (NEGATIVE) /HPF Urine Mucus (Auto) (NEGATIVE) /HPF Ur Culture Indicated? Urine Glucose (NEGATIVE) mg/dL Influenza Type A Ag (NEGATIVE) Influenza Type B Ag (NEGATIVE) RSV (PCR) (Negative) SARS-CoV-2 (PCR) (NEGATIVE) - Radiology Exams Ordered Rad Exams-Entire Visit: Radiology Procedures Category Date Time Status CERVICAL SPINE WO CONTRAST [CT] Routine Exams 05/13/22 00:45 Completed CHEST 1 VIEW (PORTABLE) Routine Exams 05/13/22 00:33 Completed HEAD WITHOUT CONTRAST [CT] Stat Exams 05/12/22 23:18 Completed - Procedures and Test Procedures and Tests throughout Hospitalization: Therapy Orders & Screens 05/13/22 04:43 Respiratory Therapy Assessment DAILY Comment: Diagnosis: SYNCOPE 05/13/22 08:00 Smoking Cessation Education ONCE Comment: Diagnosis: SYNCOPE Smoking Status: Current every day smoker How long have you smoked: 35 YEARS Have you smoked in the past 12 months: Yes Approximately how many cigarettes per day: 3-5 Do you dip or chew tobacco: No - Discharge Disposition: Home, Self-Care Condition: Good Prescriptions: Continue Aspirin EC 81 mg [Ecotrin 81 mg] 81 mg PO DAILY Lisinopril 10 mg [Zestril 10 MG] 10 mg PO DAILY Non-Formulary Drug [Non-Formulary Item] 1 tab PO DAILY Multivitamin 1 each PO DAILY Isosorbide Dinitrate 30 mg PO DAILY Atorvastatin Calcium 40 mg PO HS Alendronate Sodium [Fosamax] 70 mg PO UD Discontinued Glipizide Xl 5 mg [Glucotrol Xl 5 MG] 5 mg PO DAILY Follow up with: VISHNU PROCTOR [COURTESY STAFF] - 1 Week LUC ELAINE [ACTIVE STAFF] - Call for Appointment
[2022-05-13 08:19] VITALS: BP 149/63; O2SAT 93
[2022-05-13] MEDS ORDERED: MEDICATION INTERVENTION MC SCH (09:00)
[2022-05-13] MEDS ORDERED: Zestril 10 MG PO SCH (10:00)
[2022-05-13] MEDS ORDERED: PROTONIX 40 MG IV IV SCH (10:00)
[2022-05-13] MEDS ORDERED: ECOTRIN 81 MG PO SCH (10:00)
[2022-05-13] MEDS ORDERED: NON-FORMULARY ITEM (Non-Formulary Drug [Non-Formulary Item] 1 EACH Each) PO SCH (10:00)
[2022-05-13] MEDS ORDERED: Imdur 30 MG PO SCH (10:00)
[2022-05-13] MEDS ORDERED: ISOSORBIDE DINITRATE 30 MG PO SCH (10:00)
[2022-05-13] MEDS ORDERED: NON-FORMULARY ITEM (Multivitamin [Multivitamin] 1 EACH Tablet) PO SCH (10:00)
[2022-05-13] MEDS ORDERED: THERAGRAN MULTIVITAMIN PO SCH (10:00)
[2022-05-13] MEDS ORDERED: ZOCOR 20MG PO SCH (22:00)
[2022-05-13] MEDS ORDERED: LIPITOR 40MG PO SCH (22:00)
[2022-05-14] MEDS ORDERED: Fosamax 70 MG PO SCH (06:00)
== END 2022-05-13 09:35 | disposition home or self-care (01) ==
LOC: ED 22:19 → MED SURG 05-13 02:19
PROVIDERS: ADMIT Family Medicine; ATTEND Family Medicine
DX: R55 Syncope and collapse (principal); E11.9 Type 2 diabetes mellitus without complications; I10 Essential (primary) hypertension; Z79.899 Other long term (current) drug therapy; Z20.828 Contact with and (suspected) exposure to other viral communicable diseases; Z72.0 Tobacco use
CPT/HCPCS: 0241U; 36000; 36415; 70450; 71045; 72125; 80053; 81015; 82947; 83036; 83605; 83735; 83880; 84484; 85025; 87040; 93005; 93041; 93268; 96360; 96361; 99285; G0378

== ENCOUNTER 2023-07-13 21:48 | Emergency (ER) | payer MEDICARE ==
--- NOTE | 2023-07-13 21:59 | ERPHSYRPT ---
- History of Present Illness Time Seen by Provider: 07/13/23 21:53 Source: patient, family, EMS Exam Limitations: no limitations Physician History: Pt felt weak and dizzy at home and called EMS. BP was 90s. C/O Headache. No Hx trauma. No blood thinner other than ASA. Hx Ht pacer inplace. No BP meds. Neg CVA cincinatti scale. No pronator drift No facial asym. 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 . Fundi benign. No Abd pain. Abd nontender without mass or peritoneal signs. Chest clear Ht without M. Normal neuro and mental status. Discussed risks/benefits with pt for CT CTA, CBC/CMP, Thyroid T4 TSH, Lactate, EKG Trop, BNP, UA, and she wishes to proceed. These are ordered. Results discussed with Pt. cardiac pacer placed following with Dr. Vo no stents or bypass for ht. a bypass for LE. Timing/Duration: today Severity: moderate Associated Symptoms: headaches, malaise, weakness Allergies/Adverse Reactions: No Known Drug Allergies Allergy (Verified 07/13/23 22:13) Home Medications: Alendronate Sodium [Fosamax] 70 mg PO UD 05/13/22 [History] Aspirin EC 81 mg [Ecotrin 81 mg] 81 mg PO DAILY 05/13/22 [History] Atorvastatin Calcium 40 mg PO HS 05/13/22 [History] Lisinopril 10 mg [Zestril 10 MG] 0.5 mg PO DAILY 05/13/22 [History] Cyanocobalamin (Vitamin B-12) [Vitamin B-12] 1 tablet PO DAILY 07/13/23 [History] Ferrous Sulfate 325 mg [Feosol 325 mg] 1 tablet PO DAILY 07/13/23 [History] Glimepiride 2 mg [Amaryl 2 MG] 1 tablet PO DAILY 07/13/23 [History] Mv-Mn/Iron/Folic Acid/Herb 190 [Vitamin D3 Complete Caplet] 1 tablet PO DAILY 07/13/23 [History] Hx Tetanus, Diphtheria Vaccination/Date Given: No Hx Influenza Vaccination/Date Given: Yes Hx Pneumococcal Vaccination/Date Given: No Travel Risk - Vaccine Status Have you recieved a Covid-19 vaccination: Yes Esl Tutor: Waffle - Vaccination Dates Date of 2cond Vaccination (if applicable): 2020 Comment: PT DOES NOT RECALL WHEN SHE GOT BOOSTER - Review of Systems Constitutional: No Fever, No Chills Eyes: No Symptoms Ears, Nose, & Throat: No Symptoms Respiratory: No Cough, No Dyspnea Cardiac: No Chest Pain, No Edema, No Syncope Abdominal/Gastrointestinal: No Abdominal Pain, No Nausea, No Vomiting, No Diarrhea Genitourinary Symptoms: No Dysuria Musculoskeletal: No Back Pain, No Neck Pain, No Fall, No Injury Skin: No Rash Neurological: Dizziness, Headache, No Focal Weakness, No Gait Changes, No Sensory Changes, No Speech Changes, No Tremors, No Vertigo Psychological: No Symptoms Endocrine: No Symptoms Hematologic/Lymphatic: No Symptoms Immunological/Allergic: No Symptoms All Other Systems: Reviewed and Negative - Past Medical History Pertinent Past Medical History: Yes Neurological History: No Pertinent History ENT History: Cataracts Cardiac History: High Cholesterol, Hypertension Respiratory History: No Pertinent History Endocrine Medical History: Diabetes Type II Musculoskeletal History: Arthritis GI Medical History: No Pertinent History History: No Pertinent History Psycho-Social History: No Pertinent History Female Reproductive Disorders: No Pertinent History - Past Surgical History Past Surgical History: Yes Neuro Surgical History: No Pertinent History Cardiac: Vascular Surgery Respiratory: No Pertinent History Gastrointestinal: No Pertinent History Genitourinary: No Pertinent History Musculoskeletal: Orthopedic Surgery Female Surgical History: Hysterectomy Other Surgical History: TOTAL HYSTERECTOMY 2001? artery bipass LEFT FEMORAL 2002? (HAD A BLOCK), neck surgery DISK ISSUES - Social History Smoking Status: Current every day smoker How long have you smoked: 35 YEARS Exposure to second hand smoke: Yes Drug Use: none Patient Lives Alone: No - Nursing Vital Signs Nursing Vital Signs: Initial Vital Signs Temperature 98.2 F 07/13/23 21:49 Pulse Rate 57 L 07/13/23 21:49 Respiratory Rate 18 07/13/23 21:49 Blood Pressure 121/56 07/13/23 21:49 O2 Sat by Pulse Oximetry 98 07/13/23 21:49 Pain Scale Pain Intensity 2 - Physical Exam General Appearance: no apparent distress, alert Eye Exam: PERRL/EOMI, eyes nml inspection Ears, Nose, Throat Exam: normal ENT inspection, TMs normal, pharynx normal, moist mucous membranes Neck Exam: normal inspection, non-tender, supple, full range of motion Respiratory Exam: normal breath sounds, lungs clear, No respiratory distress Cardiovascular Exam: regular rate/rhythm, normal heart sounds, normal peripheral pulses Gastrointestinal/Abdomen Exam: soft, normal bowel sounds, No tenderness, No mass Pelvic Exam: deferred Rectal Exam: deferred Back Exam: normal inspection, normal range of motion, No CVA tenderness, No vertebral tenderness Extremity Exam: normal inspection, normal range of motion, pelvis stable Neurologic Exam: alert, oriented x 3, cooperative, normal mood/affect, nml cerebellar function, nml station & gait, sensation nml, No motor deficits Skin Exam: normal color, warm, dry, No rash Lymphatic Exam: No adenopathy SpO2 Interpretation: normal O2 Delivery: Room Air - Course Nursing assessment & vital signs reviewed: Yes EKG Interpreted by Me: Sinus Rhythm, NORMAL AXIS, NORMAL INTERVALS, NORMAL QRS, Non-specific ST Changes - CT Exams Head CT Interpretation: No/Intracranial Hemorrhag, Other (no evid for acute CVA; Mild CVD, Mild enlarged vents. ) Abdomen/Pelvis CT Interpretation: Tele-radiologist Report, Normal Appendix, Other (liver hypodense lesions, LLL nodule) Ordered Tests: Active Orders 24 hr Category Date Time Status EKG-ER Only STAT Care 07/13/23 22:07 Active IV Insertion STAT Care 07/13/23 22:07 Active ABDOMEN AND PELVIS W/0 CONTRAS [CT] Stat Exams 07/13/23 23:04 Completed CHEST 1 VIEW (PORTABLE) Stat Exams 07/13/23 22:08 Taken HEAD WITHOUT CONTRAST [CT] Stat Exams 07/13/23 22:14 Completed CBC W DIFF Stat Lab 07/13/23 22:25 Completed CMP Stat Lab 07/13/23 22:25 Completed CULTURE,URINE Stat Lab 07/13/23 22:58 Received D-DIMER QUANTITATIVE Stat Lab 07/13/23 22:25 Completed Lactic Acid Stat Lab 07/13/23 22:10 Completed Lactic Acid Stat Lab 07/14/23 00:17 Received NT PRO BNPII Stat Lab 07/13/23 22:25 Completed T4 (Thyroxine) Stat Lab 07/13/23 22:25 Completed TROPONIN Q4H Lab 07/13/23 22:25 Completed TROPONIN Q4H Lab 07/14/23 02:11 Received TROPONIN Q4H Lab 07/14/23 06:15 Ordered TSH [TSH, 3RD Generation] Stat Lab 07/13/23 22:11 Completed UA W/RFX UR CULTURE Stat Lab 07/13/23 22:58 Completed Medication Summary Generic Name Dose Route Start Last Admin Trade Name Apollo PRN Reason Stop Dose Admin Sodium Chloride 1,000 mls @ 100 mls/hr 07/13/23 22:15 07/13/23 22:22 Sodium Chloride 0.9% 1000 Ml IV 08/12/23 22:14 100 mls/hr .Q10H JUAN LUIS Administration Discontinued Medications Generic Name Dose Route Start Last Admin Trade Name Apollo PRN Reason Stop Dose Admin Ceftriaxone Sodium/Dextrose 1 g in 50 mls @ 100 mls/hr 07/13/23 23:40 07/14/23 01:18 Rocephin 1 Gm-D5w 50 Ml Bag IV 07/14/23 00:09 Infused STAT STA Infusion Ceftriaxone Sodium/Dextrose Confirm 07/13/23 23:44 Rocephin 1 Gm-D5w 50 Ml Bag Administered 07/13/23 23:45 Dose 1 g in 50 mls @ ud IV .[facility] Lab/Rad Data: Laboratory Result Diagrams 07/13/23 22:25 07/13/23 22:25 Laboratory Results 07/14/23 07/14/23 07/13/23 Range/Units 00:17 00:17 22:58 WBC (4.0-10.5) x10^3/uL RBC (4.1-5.4) x10^6/uL Hgb (12.0-16.0) g/dL Hct (35-47) % MCV (78-100) fL MCH (26-32) pg MCHC (32-36) g/dL RDW (11.5-14.0) % Plt Count (150-450) x10^3/uL MPV (7.5-11.0) fL Gran % (36.0-66.0) % Immature Gran % (Auto) (0.00-0.4) % Nucleat RBC Rel Count (0.00-0.1) % Eos # (Auto) (0-0.5) x10^3/uL Immature Gran # (Auto) (0.00-0.03) x10^3u/L Absolute Lymphs (auto) (1.0-4.6) x10^3/uL Absolute Monos (auto) (0.0-1.3) x10^3/uL Absolute Nucleated RBC (0.00-0.01) x10^3u/L Lymphocytes % (24.0-44.0) % Monocytes % (0.0-12.0) % Eosinophils % (0.00-5.0) % Basophils % (0.0-0.4) % Absolute Granulocytes (1.4-6.9) x10^3/uL Basophils # (0-0.4) x10^3/uL D-Dimer (0.0-0.50) mg/L Sodium (137-145) mmol/L Potassium (3.5-5.1) mmol/L Chloride (98-107) mmol/L Carbon Dioxide (22-30) mmol/L Anion Gap (5-15) MEQ/L BUN (7-17) mg/dL Creatinine (0.52-1.04) mg/dL Estimated GFR ML/MIN Glucose (74-106) mg/dL Lactic Acid 0.9 (0.4-2.0) Calcium (8.4-10.2) mg/dL Total Bilirubin (0.2-1.3) mg/dL AST (14-36) U/L ALT (0-35) U/L Alkaline Phosphatase (38-126) U/L Troponin I (0.000-0.034) ng/mL NT-Pro-B Natriuret Pep (<300) pg/mL Serum Total Protein (6.3-8.2) g/dL Albumin (3.5-5.0) g/dL Thyroxine (T4) (5.53-10.96) ug/dL TSH 3rd Generation (0.47-4.68) mIU/L Urine Color Dark Yellow A (Yellow) Urine Appearance Turbid A (Clear) Urine pH 5.0 (4.6-8.0) Ur Specific [place] >=1.030 A (1.005-1.030) Urine Protein 100 A (Negative) Urine Glucose (UA) Negative (Negative) mg/dL Urine Ketones Trace A (Negative) Urine Blood Negative (Negative) Urine Nitrite Negative (Negative) Urine Bilirubin Negative (Negative) Urine Urobilinogen 1.0 A (0.2) mg/dL Ur Leukocyte Esterase Small A (Negative) U Hyaline Cast (Auto) 6-10 A (0-2) /LPF Urine Microscopic RBC 6-10 A (0-5) /HPF Urine Microscopic WBC 21-50 A (0-5) /HPF Ur Epithelial Cells Moderate A (None Seen) /HPF Calcium Oxalate Crystal 11-25 A (None Seen) /HPF Urine Bacteria Many A (None Seen) /HPF Urine Culture Reflexed YES (NO) Influenza Type A Ag NEGATIVE (NEGATIVE) Influenza Type B Ag NEGATIVE (NEGATIVE) RSV (PCR) NEGATIVE (NEGATIVE) SARS-CoV-2 (PCR) NEGATIVE (NEGATIVE) 07/13/23 07/13/23 07/13/23 Range/Units 22:25 22:25 22:25 WBC (4.0-10.5) x10^3/uL RBC (4.1-5.4) x10^6/uL Hgb (12.0-16.0) g/dL Hct (35-47) % MCV (78-100) fL MCH (26-32) pg MCHC (32-36) g/dL RDW (11.5-14.0) % Plt Count (150-450) x10^3/uL MPV (7.5-11.0) fL Gran % (36.0-66.0) % Immature Gran % (Auto) (0.00-0.4) % Nucleat RBC Rel Count (0.00-0.1) % Eos # (Auto) (0-0.5) x10^3/uL Immature Gran # (Auto) (0.00-0.03) x10^3u/L Absolute Lymphs (auto) (1.0-4.6) x10^3/uL Absolute Monos (auto) (0.0-1.3) x10^3/uL Absolute Nucleated RBC (0.00-0.01) x10^3u/L Lymphocytes % (24.0-44.0) % Monocytes % (0.0-12.0) % Eosinophils % (0.00-5.0) % Basophils % (0.0-0.4) % Absolute Granulocytes (1.4-6.9) x10^3/uL Basophils # (0-0.4) x10^3/uL D-Dimer (0.0-0.50) mg/L Sodium (137-145) mmol/L Potassium (3.5-5.1) mmol/L Chloride (98-107) mmol/L Carbon Dioxide (22-30) mmol/L Anion Gap (5-15) MEQ/L BUN (7-17) mg/dL Creatinine (0.52-1.04) mg/dL Estimated GFR ML/MIN Glucose (74-106) mg/dL Lactic Acid (0.4-2.0) Calcium (8.4-10.2) mg/dL Total Bilirubin (0.2-1.3) mg/dL AST (14-36) U/L ALT (0-35) U/L Alkaline Phosphatase (38-126) U/L Troponin I < 0.012 (0.000-0.034) ng/mL NT-Pro-B Natriuret Pep 76.0 (<300) pg/mL Serum Total Protein (6.3-8.2) g/dL Albumin (3.5-5.0) g/dL Thyroxine (T4) 8.90 (5.53-10.96) ug/dL TSH 3rd Generation (0.47-4.68) mIU/L Urine Color (Yellow) Urine Appearance (Clear) Urine pH (4.6-8.0) Ur Specific [place] (1.005-1.030) Urine Protein (Negative) Urine Glucose (UA) (Negative) mg/dL Urine Ketones (Negative) Urine Blood (Negative) Urine Nitrite (Negative) Urine Bilirubin (Negative) Urine Urobilinogen (0.2) mg/dL Ur Leukocyte Esterase (Negative) U Hyaline Cast (Auto) (0-2) /LPF Urine Microscopic RBC (0-5) /HPF Urine Microscopic WBC (0-5) /HPF Ur Epithelial Cells (None Seen) /HPF Calcium Oxalate Crystal (None Seen) /HPF Urine Bacteria (None Seen) /HPF Urine Culture Reflexed (NO) Influenza Type A Ag (NEGATIVE) Influenza Type B Ag (NEGATIVE) RSV (PCR) (NEGATIVE) SARS-CoV-2 (PCR) (NEGATIVE) 07/13/23 07/13/23 07/13/23 Range/Units 22:25 22:25 22:25 WBC 14.6 H (4.0-10.5) x10^3/uL RBC 3.73 L (4.1-5.4) x10^6/uL Hgb 12.0 (12.0-16.0) g/dL Hct 36.4 (35-47) % MCV 97.6 (78-100) fL MCH 32.2 H (26-32) pg MCHC 33.0 (32-36) g/dL RDW 11.1 L (11.5-14.0) % Plt Count 237 (150-450) x10^3/uL MPV 9.5 (7.5-11.0) fL Gran % 76.9 H (36.0-66.0) % Immature Gran % (Auto) 0.3 (0.00-0.4) % Nucleat RBC Rel Count 0.0 (0.00-0.1) % Eos # (Auto) 0.13 (0-0.5) x10^3/uL Immature Gran # (Auto) 0.05 H (0.00-0.03) x10^3u/L Absolute Lymphs (auto) 2.33 (1.0-4.6) x10^3/uL Absolute Monos (auto) 0.82 (0.0-1.3) x10^3/uL Absolute Nucleated RBC 0.00 (0.00-0.01) x10^3u/L Lymphocytes % 16.0 L (24.0-44.0) % Monocytes % 5.6 (0.0-12.0) % Eosinophils % 0.9 (0.00-5.0) % Basophils % 0.3 (0.0-0.4) % Absolute Granulocytes 11.18 H (1.4-6.9) x10^3/uL Basophils # 0.04 (0-0.4) x10^3/uL D-Dimer 1.06 H* (0.0-0.50) mg/L Sodium 137 (137-145) mmol/L Potassium 3.7 (3.5-5.1) mmol/L Chloride 103 (98-107) mmol/L Carbon Dioxide 25 (22-30) mmol/L Anion Gap 12.4 (5-15) MEQ/L BUN 21 H (7-17) mg/dL Creatinine 0.72 (0.52-1.04) mg/dL Estimated GFR 85.0 ML/MIN Glucose 149 H (74-106) mg/dL Lactic Acid (0.4-2.0) Calcium 9.6 (8.4-10.2) mg/dL Total Bilirubin 0.40 (0.2-1.3) mg/dL AST 22 (14-36) U/L ALT 18 (0-35) U/L Alkaline Phosphatase 54 (38-126) U/L Troponin I (0.000-0.034) ng/mL NT-Pro-B Natriuret Pep (<300) pg/mL Serum Total Protein 6.9 (6.3-8.2) g/dL Albumin 4.3 (3.5-5.0) g/dL Thyroxine (T4) (5.53-10.96) ug/dL TSH 3rd Generation (0.47-4.68) mIU/L Urine Color (Yellow) Urine Appearance (Clear) Urine pH (4.6-8.0) Ur Specific [place] (1.005-1.030) Urine Protein (Negative) Urine Glucose (UA) (Negative) mg/dL Urine Ketones (Negative) Urine Blood (Negative) Urine Nitrite (Negative) Urine Bilirubin (Negative) Urine Urobilinogen (0.2) mg/dL Ur Leukocyte Esterase (Negative) U Hyaline Cast (Auto) (0-2) /LPF Urine Microscopic RBC (0-5) /HPF Urine Microscopic WBC (0-5) /HPF Ur Epithelial Cells (None Seen) /HPF Calcium Oxalate Crystal (None Seen) /HPF Urine Bacteria (None Seen) /HPF Urine Culture Reflexed (NO) Influenza Type A Ag (NEGATIVE) Influenza Type B Ag (NEGATIVE) RSV (PCR) (NEGATIVE) SARS-CoV-2 (PCR) (NEGATIVE) 07/13/23 07/13/23 Range/Units 22:11 22:10 WBC (4.0-10.5) x10^3/uL RBC (4.1-5.4) x10^6/uL Hgb (12.0-16.0) g/dL Hct (35-47) % MCV (78-100) fL MCH (26-32) pg MCHC (32-36) g/dL RDW (11.5-14.0) % Plt Count (150-450) x10^3/uL MPV (7.5-11.0) fL Gran % (36.0-66.0) % Immature Gran % (Auto) (0.00-0.4) % Nucleat RBC Rel Count (0.00-0.1) % Eos # (Auto) (0-0.5) x10^3/uL Immature Gran # (Auto) (0.00-0.03) x10^3u/L Absolute Lymphs (auto) (1.0-4.6) x10^3/uL Absolute Monos (auto) (0.0-1.3) x10^3/uL Absolute Nucleated RBC (0.00-0.01) x10^3u/L Lymphocytes % (24.0-44.0) % Monocytes % (0.0-12.0) % Eosinophils % (0.00-5.0) % Basophils % (0.0-0.4) % Absolute Granulocytes (1.4-6.9) x10^3/uL Basophils # (0-0.4) x10^3/uL D-Dimer (0.0-0.50) mg/L Sodium (137-145) mmol/L Potassium (3.5-5.1) mmol/L Chloride (98-107) mmol/L Carbon Dioxide (22-30) mmol/L Anion Gap (5-15) MEQ/L BUN (7-17) mg/dL Creatinine (0.52-1.04) mg/dL Estimated GFR ML/MIN Glucose (74-106) mg/dL Lactic Acid 2.1 H (0.4-2.0) Calcium (8.4-10.2) mg/dL Total Bilirubin (0.2-1.3) mg/dL AST (14-36) U/L ALT (0-35) U/L Alkaline Phosphatase (38-126) U/L Troponin I (0.000-0.034) ng/mL NT-Pro-B Natriuret Pep (<300) pg/mL Serum Total Protein (6.3-8.2) g/dL Albumin (3.5-5.0) g/dL Thyroxine (T4) (5.53-10.96) ug/dL TSH 3rd Generation 2.130 (0.47-4.68) mIU/L Urine Color (Yellow) Urine Appearance (Clear) Urine pH (4.6-8.0) Ur Specific [place] (1.005-1.030) Urine Protein (Negative) Urine Glucose (UA) (Negative) mg/dL Urine Ketones (Negative) Urine Blood (Negative) Urine Nitrite (Negative) Urine Bilirubin (Negative) Urine Urobilinogen (0.2) mg/dL Ur Leukocyte Esterase (Negative) U Hyaline Cast (Auto) (0-2) /LPF Urine Microscopic RBC (0-5) /HPF Urine Microscopic WBC (0-5) /HPF Ur Epithelial Cells (None Seen) /HPF Calcium Oxalate Crystal (None Seen) /HPF Urine Bacteria (None Seen) /HPF Urine Culture Reflexed (NO) Influenza Type A Ag (NEGATIVE) Influenza Type B Ag (NEGATIVE) RSV (PCR) (NEGATIVE) SARS-CoV-2 (PCR) (NEGATIVE) - Progress Progress: improved, re-examined Progress Note: 07/13/23 23:[address] Yun had told them to avoid contrast - so we will follow that advice and not due CTA at this time. This also precludes PE protocol. 07/13/23 23:52 discussed risk/benefit for CT abd to rule out other cause for hypotension beside UTI and pt/Spouse wish to proceed. Discussed presentation, and results with Dr. James Mcclure hospitalist covering and he is comfortable with outpt Tx of UTI as the presumptive cause for the hypotension , elevated WBC and D dimer at this point, and that admission will not likely avail further elucidation of any other cause. Discussed with pt and as well and explained that while we have a potential explanation in the UTI infection, we cannot fully exclude the possibilities for additional pathology including cardiac, vascular ( such as PE, Dissection, Aneurism, other septic infections, Cerebrovascular or other potent ial serious conditions which could result in or other complications without further workup. They also prefer outpt f/u with their Drs without furhter w/u in ER or hospital obs at this time and have the capacity to make this choice. 07/14/23 01:[address] Other (Dr. James Mcclure) Will see patient in: other (hospitalists advises outpt Tx and F/U PMD) Counseled pt/family regarding: lab results, diagnosis, need for follow-up, rad results Medical Desision Making - Independent Historian Additional History obtained from: EMS - Discussion of managment Reviewed:: Test results, Need for additional workup Agreed on:: Treatment plan, need for follow-up - Diagnostic Testing Diagnostic test were ordered, analyzed, and reviewed by me: Yes Radiological Interpretation: Interpreted by me, Reviewed by me - Risk of complications The pt has a mod risk of morbidity or mortality based on: Need for prescription drug management The pt has a high risk of morbidity or mortality based on: Decision regarding hospitilization or escalation of hosp level of care - Departure Departure Disposition: Home Clinical Impression: UTI (urinary tract infection), transient episode of hypotension, liver nodules, cerebral small vessel Dx, enlarged cerebral ventricles, Pulmonary nodule Condition: Good Critical Care Time: No Referrals: J LUIS JUARES MD [Primary Care Provider] - Follow up/PCP as directed Instructions: Urinary Tract Infection, Adult (DC), Sepsis, Adult (DC), Pulmonary nodule Additional Instructions: Although we did find a urinary infection as a possible cause for your symptoms, there may be other undetected conditions such as cardiac or lung blood clots or blood vessel conditions or other infections or others, as a cause which could be serious. It is important for you to followup with your DrFely to continue the workup for cerebral vascular disease, and to exclude other conditions. Return meantime if any further symptoms. There are also liver nodules or cysts, a lung nodule and enlarged cerebral ventricles to see your DrFely to check out. Prescriptions: Cephalexin Mh 500 mg [Keflex 500 mg] 500 mg PO TID 7 Days #21 cap
[2023-07-13 22:13] VITALS: TEMP 98.2
[2023-07-13] MEDS ORDERED: Sodium Chloride 0.9% 1000 ML 1,000 ML IV SCH (22:15)
[2023-07-13] MEDS ORDERED: Sodium Chloride 0.9% 1000 ML 1,000 ML ONE (22:21)
[2023-07-13 22:28] LABS: Absolute Neutrophil Ct (ANC) 11.18 x10^3/uL (1.4-6.9); BASOPHIL % 0.3 % (0.0-0.4); Basophil (Absolute #) 0.04 x10^3/uL (0-0.4); Eosinophil % 0.9 % (0.00-5.0); Eosinophil (Absolute #) 0.13 x10^3/uL (0-0.5); Hematocrit 36.4 % (35-47); IMMATURE GRAN # 0.05 x10^3u/L (0.00-0.03); IMMATURE GRAN % 0.3 % (0.00-0.4); Lymphocyte (Absolute #) 2.33 x10^3/uL (1.0-4.6); Mean Cell Volume 97.6 fL (78-100); Mean Corpuscular Hemoglobin 32.2 pg (26-32); Mean Platelet Volume 9.5 fL (7.5-11.0); Monocyte (Absolute #) 0.82 x10^3/uL (0.0-1.3); Monocytes % 5.6 % (0.0-12.0); Neutrophil % 76.9 % (36.0-66.0); Platelet Count 237 x10^3/uL (150-450); Red Blood Count 3.73 x10^6/uL (4.1-5.4); Red Cell Distribution Width 11.1 % (11.5-14.0); White Blood Count 14.6 x10^3/uL (4.0-10.5)
[2023-07-13 22:42] LABS: ALBUMIN 4.3 g/dL (3.5-5.0); ANION GAP 12.4 MEQ/L (5-15); BILIRUBIN,TOTAL 0.4 mg/dL (0.2-1.3); Calcium 9.6 mg/dL (8.4-10.2); Creatinine 1 0.72 mg/dL (0.52-1.04); Potassium 3.7 mmol/L (3.5-5.1); Total Protein 6.9 g/dL (6.3-8.2)
[2023-07-13 23:16] LABS: Appearance Turbid (Clear); Bacteria Many /HPF (None Seen); Bilirubin Negative (Negative); Blood Negative (Negative); Epithelial Cells Moderate /HPF (None Seen); Glucose, Urine Negative (Negative); Ketones Trace (Negative); Leukocyte Esterase Small (Negative); Nitrite Negative (Negative); Protein,Urine Dip 100 (Negative); Specific Gravity >=1.030 (1.005-1.030); WBC 21-50 /HPF (0-5)
[2023-07-13 23:22] LABS: ADD URINE CULTURE? YES (NO)
[2023-07-13] MEDS ORDERED: ROCEPHIN 1 Gm-D5w 50 ml Bag** 1 G/50 ML IVPB IV STA (23:40)
--- NOTE | 2023-07-13 23:40 | XRAY ---
CLINICAL HISTORY:headache, weakness COMPARISON:None. TECHNIQUE:An axial non-contrast CT scan of the brain was performed from the skull base to the high parietal region. FINDINGS: No intracerebral or extra axial hematoma. Relatively accentuated bilateral cerebral periventricular deep white matter hypodensities. The rest of the visualized brain parenchyma shows a normal appearance. Stevens-white matter differentiation is maintained. Normal CT appearance of the posterior fossa structures namely the cerebellar hemispheres, brainstem and cerebellar peduncles. Mild dilatation of the lateral and 3rd ventricles. No significant 4th ventricular dilatation. Prominent cortical sulci and sylvian fissures. No midline shifts or deformity. No definite calvarial fractures. The osseous structures in the skull base are unremarkable. The scanned paranasal sinuses are clear. Left side nasal septum deviation with clear right middle ketan bullosa. IMPRESSION: 1. No intracerebral, extra axial hematoma or parenchymal areas of abnormal attenuation to suggest acute ischemic insult. 2. Mild small artery disease. 3. Mild supratentorial ventriculomegaly with cortical brain involutional changes. Advise further MRI assessment if clinically warrented. Electronically Signed by: Merry Paz MD. (07/13/2023 23:35:22 EST)
[2023-07-13] MEDS ORDERED: ROCEPHIN 1 Gm-D5w 50 ml Bag** 1 G/50 ML IVPB IV ONE (23:44)
--- NOTE | 2023-07-14 00:44 | XRAY ---
CLINICAL HISTORY:Hypotension elevated WBC ?source COMPARISON:None. TECHNIQUE:Multiple axial sections of the abdomen pelvis were acquired without intravenous contrast administration. Sagittal and coronal reformatted images were obtained. FINDINGS: Please note, that lack of contrast limits the evaluation of organs, vascular structures, and lymph nodes. A 6 mm calcified nodule is seen in the left lower lung lobe. Otherwise, lung bases are clear. There are multiple hypodense areas seen in the liver, the largest in the right lobe of the liver measures 1.9 x 1.4 cm. A coarse peripherally calcified hypodense area measuring 1.8 x 1.4 cm is seen in segment 2 of the liver. In addition to this, multiple 2 mm calcified granulomas are seen scattered throughout the liver parenchyma. No intrahepatic duct dilatation is noted. The gallbladder is optimally distended. The common bile duct is normal. The pancreas, spleen, and both adrenal glands appear normal in this unenhanced study. A few calcified granulomas are seen scattered in the splenic parenchyma. Both kidneys are normal in size, location, and axis. No hydronephrosis or cyst is seen on either side. Focal calcification is seen at the left kidney likely vascular. The urinary bladder is suboptimally distended. No acute bowel obstruction or ileus. There are multiple scattered colonic diverticula without evidence of acute diverticulitis. A few diverticula demonstrate calcification. The appendix is normal. The stomach and distal esophagus appeared unremarkable. Small bowel loops appear grossly normal. The bilateral femoral communicating vascular catheter is noted. Diffuse atherosclerotic calcification of abdominal aorta branches. The uterus is not well visualized with surgical clips in the pelvis. Please correlate this with the history of hysterectomy. Both adnexa appears within normal CT limits. No free fluid or free intraperitoneal air is noted. No evidence of enlarged lymphadenopathy. Multilevel spondylosis. IMPRESSION: 1. Multiple hepatic hypodense lesions may reflect cysts versus hemangiomas. Lack of contrast limits evaluation. For ultrasound correlation. 2. A course peripherally calcified hypodense area was seen in segment 2 in the left lobe of the liver measuring 1.8 x 1.4 cm. 3. Scattered hepatosplenic granulomata. 4. Other findings as described. Electronically Signed by: Merry Paz MD. (07/14/2023 00:39:55 EST)
[2023-07-14 00:55] LABS: INFLUENZA A NEGATIVE (NEGATIVE); INFLUENZA B NEGATIVE (NEGATIVE); RESPIRATORY SYNCTIAL VIRUS NEGATIVE (NEGATIVE); SARS-CoV-2 Xpert Express NEGATIVE (NEGATIVE)
[2023-07-14 01:17] VITALS: O2SAT 94
[2023-07-14 02:28] VITALS: BP 133/64; PULSE 77; RESP 17
--- NOTE | 2023-07-14 08:32 | XRAY ---
Indication: Hypotension. Comparison: May 13, 2022 Portable chest again hyperinflated with small left base calcified granuloma. No focal infiltrate, consolidation, or large effusion. Heart not enlarged. Bony thorax intact again with osteopenia, mild degenerative changes, and lower cervical fusion hardware. Impression: Nonacute hyperinflated chest with chronic features.
== END 2023-07-14 02:40 | disposition home or self-care (01) ==
LOC: ED 21:48
DX: N39.0 Urinary tract infection, site not specified (principal); I95.9 Hypotension, unspecified; K76.89 Other specified diseases of liver; I67.9 Cerebrovascular disease, unspecified; R91.1 Solitary pulmonary nodule; R42 Dizziness and giddiness; R53.1 Weakness; R51.9 Headache, unspecified; E78.5 Hyperlipidemia, unspecified; I10 Essential (primary) hypertension; E11.9 Type 2 diabetes mellitus without complications; Z79.84 Long term (current) use of oral hypoglycemic drugs; Z79.899 Other long term (current) drug therapy; Z72.0 Tobacco use; Z20.828 Contact with and (suspected) exposure to other viral communicable diseases
CPT/HCPCS: 0241U; 36000; 36415; 70450; 71045; 74176; 80053; 81001; 83605; 83880; 84436; 84443; 84484; 85025; 85379; 87086; 93005; 96365; 99284; J0696

== ENCOUNTER 2025-07-08 03:28 | Emergency (ER) | payer MEDICARE ==
[2025-07-08 03:47] VITALS: TEMP 97.4; O2SAT 98
[2025-07-08] MEDS ORDERED: TYLENOL 325 MG ONE (03:48)
[2025-07-08] MEDS: TYLENOL 325 MG PO ONE (03:48)
--- NOTE | 2025-07-08 04:10 | ERPHSYRPT ---
- History of Present Illness Time Seen by Provider: 07/08/25 04:05 Source: patient Exam Limitations: no limitations Patient Subjective Stated Complaint: pt states that the cat seen a mouse and it startled her and she fell. pt states that she has chest pain Triage Nursing Assessment: pt came into the er by POV; pt ambulated into the er with assist of walker; pt is axo x2; c/o chest pain; pt states 7/10 pain to left chest and left ribs; clear apical heart tone; clear lung sounds in all quads; strong melissa radial pulses; no edema present; no respiratory distress present; abrasion present to left lateral ribs; skin PDW; hypertensive Physician History: 80-year-old female history of dementia hypertension hyperlipidemia COPD type 2 diabetes current smoker, half pack per day presents to our ED via private vehicle for evaluation of left-sided rib pain. Patient lives alone. Patient was at home when her cat saw a mouse. The cats movement startled our patient causing her to fall. Patient fell onto her left rib. Patient has a abrasion swelling and contused skin around the area of trauma. No anterior chest wall pain. No shortness of breath. No nausea vomiting or diaphoresis. Patient's pain is localized and reproduced with movement and palpation. She rates her pain 7 out of 10. Patient otherwise feels well. She voices no other complaints or concerns at this time. Patient states the fall was mechanical. The fall was not associated with any neuro or cardiovascular symptomology. No associated chest pain or shortness of breath. No associated nausea vomiting or diaphoresis. No associated numbness tingling or weakness. No BHT or LOC. No neck pain. Cervical spine cleared clinically. Patient is not on a blood thinner Portions of this note were created with voice recognition technology. There may be grammatical, spelling, punctuation or sound alike errors Timing/Duration: today Severity: moderate Modifying Factors: Improves With: nothing Associated Symptoms: denies symptoms Allergies/Adverse Reactions: No Known Drug Allergies Allergy (Verified 07/08/25 03:30) Home Medications: Alendronate Sodium [Fosamax] 70 mg PO UD 05/13/22 [History] Aspirin EC 81 mg [Ecotrin 81 mg] 81 mg PO DAILY 05/13/22 [History] Atorvastatin Calcium 40 mg PO HS 05/13/22 [History] Cyanocobalamin (Vitamin B-12) [Vitamin B-12] 1 tablet PO DAILY 07/13/23 [History] Glimepiride 2 mg [Amaryl 2 MG] 1 tablet PO DAILY 07/13/23 [History] Donepezil HCl 10 mg [Aricept 10 MG] 10 mg PO HS 07/08/25 [History] Meclizine HCl 12.5 mg PO TID PRN 07/08/25 [History] Sertraline HCl 50 mg [Zoloft 50 mg Tablet] 50 mg PO DAILY 07/08/25 [History] Hx Tetanus, Diphtheria Vaccination/Date Given: No (unknown) Hx Influenza Vaccination/Date Given: Yes Hx Pneumococcal Vaccination/Date Given: Yes Travel Risk - International Travel Have you traveled outside of the country in past 3 weeks: No - Emerging Infectious Disease Are you exhibiting symptoms associated with any current EIDs: No - Review of Systems Constitutional: No Symptoms, No Fever, No Chills Eyes: No Symptoms Ears, Nose, & Throat: No Symptoms, Other (Patient is hard of hearing) Respiratory: No Symptoms, No Cough, No Dyspnea Cardiac: No Symptoms, No Chest Pain, No Edema, No Syncope Abdominal/Gastrointestinal: No Symptoms, No Abdominal Pain, No Nausea, No Vomiting, No Diarrhea Genitourinary Symptoms: No Symptoms, No Dysuria Musculoskeletal: No Symptoms, No Back Pain, No Neck Pain Skin: No Symptoms, No Rash Neurological: No Symptoms, No Dizziness, No Focal Weakness, No Sensory Changes Psychological: No Symptoms Endocrine: No Symptoms Hematologic/Lymphatic: No Symptoms Immunological/Allergic: No Symptoms All Other Systems: Reviewed and Negative - Past Medical History Pertinent Past Medical History: Yes Neurological History: Dementia, Other ENT History: Cataracts Cardiac History: Congenital Heart Disease, High Cholesterol, Hypertension, Peripheral Vascular Disease Respiratory History: COPD Endocrine Medical History: Diabetes Type II Musculoskeletal History: Osteoporosis GI Medical History: No Pertinent History History: No Pertinent History Psycho-Social History: No Pertinent History Female Reproductive Disorders: No Pertinent History Other Medical History: PACEMAKER, DEMENTIA, DIZZINESS - Past Surgical History Past Surgical History: Yes Neuro Surgical History: No Pertinent History Cardiac: Vascular Surgery Respiratory: No Pertinent History Gastrointestinal: No Pertinent History Genitourinary: No Pertinent History Musculoskeletal: Orthopedic Surgery Female Surgical History: Hysterectomy Other Surgical History: TOTAL HYSTERECTOMY 2001? artery bipass LEFT FEMORAL 2002? (HAD A BLOCK), neck surgery DISK ISSUES - Social History Smoking Status: Current every day smoker How long have you smoked: 35 YEARS Exposure to second hand smoke: Yes Drug Use: none - Social Determinants of Health Will the patient participate in the screening: Yes Do you worry about a steady place to live?: No Do you have any problems with any of the following?: No known problems In the past 12 months,have you had to go without utilities?: No Transportation Issues: No Has anyone in your support network made you feel unsafe?: No Have you or anyone in your house had to go w/o enough food: No - Nursing Vital Signs Nursing Vital Signs: Initial Vital Signs Pulse Rate 54 L 07/08/25 03:30 Blood Pressure 161/69 07/08/25 03:30 O2 Sat by Pulse Oximetry 96 07/08/25 03:30 Pain Scale Pain Intensity 5 - Physical Exam General Appearance: no apparent distress, alert Eye Exam: PERRL/EOMI, eyes nml inspection Ears, Nose, Throat Exam: normal ENT inspection, moist mucous membranes Neck Exam: normal inspection, supple, full range of motion Respiratory Exam: normal breath sounds, lungs clear, other (There is some swelling superficial abrasion and tenderness along the posterior lateral rib at approximately segment 4 5 and 6.), No respiratory distress Cardiovascular Exam: regular rate/rhythm, normal heart sounds, normal peripheral pulses Gastrointestinal/Abdomen Exam: soft, normal bowel sounds, No tenderness, No mass Back Exam: normal inspection, normal range of motion, No CVA tenderness, No vertebral tenderness Extremity Exam: normal inspection, normal range of motion, pelvis stable Neurologic Exam: alert, oriented x 3, cooperative, normal mood/affect, nml cerebellar function, nml station & gait, sensation nml, No motor deficits Skin Exam: normal color, warm, dry, No rash Lymphatic Exam: No adenopathy SpO2 Interpretation: normal SpO2: 98 O2 Delivery: Room Air - Course Nursing assessment & vital signs reviewed: Yes - CT Exams Chest CT Interpretation: Tele-radiologist Report (CT chest reveals calcified lung nodule and hepatic cyst. No fracture dislocations) Ordered Tests: Active Orders 24 hr Category Date Time Status CHEST WITHOUT CONTRAST [CT] Stat Exams 07/08/25 03:39 Completed Medication Summary Discontinued Medications Generic Name Dose Route Start Last Admin Trade Name Freq PRN Reason Stop Dose Admin Acetaminophen 975 mg 07/08/25 03:39 07/08/25 03:48 Acetaminophen 325 Mg Tablet PO 07/08/25 03:40 975 mg STAT ONE Administration Acetaminophen Confirm 07/08/25 03:48 Acetaminophen 325 Mg Tablet Administered 07/08/25 03:49 Dose 975 mg .ROUTE .STK-MED ONE - Progress Progress: improved Progress Note: Patient agreeable to Tylenol 07/08/25 04:13 80-year-old female history of dementia hypertension hyperlipidemia COPD type 2 diabetes current smoker, half pack per day presents to our ED via private vehicle for evaluation of left-sided rib pain. Patient lives alone. Patient was at home when her cat saw a mouse. The cats movement startled our patient causing her to fall. Patient fell onto her left rib. Physical exam reveals an abrasion soft tissue swelling and tenderness at the left posterior lateral rib at approximately ribs 4, 5 and 6. Tylenol administered for pain control. CT chest shows calcified lung nodule and hepatic cyst. No fractures or dislocations. Patient reassessed. She is resting comfortably. No active pain. Patient's son and daughter at the bedside. They are advised of the findings. Patient aware that no fractures are visible on today's CT chest. Patient states she is ready for discharge. Patient discharged home with an incentive spirometer. Patient instructed on its use. Patient and her to adult children voiced no other complaints or concerns at this time. History obtained from patient and her daughter. Differential diagnosis includes rib fracture, intercostal strain, soft tissue contusion Portions of this note were created with voice recognition technology. There may be grammatical, spelling, punctuation or sound alike errors Complexity of problems addressed is moderate acute complicated. No critical care time. Complexity of data reviewed and analyzed is moderate. Test ordered test reviewed results analyzed and correlated clinically with history and physical exam. Risk of complication and or risk of morbidity/mortality of patient management is low. Vital stable. Time spent to discharge patient approximately 15 minutes. Plan of care established for shared decision making. No social determinants of health present to impede follow-up. The counter analgesics as needed for pain control. Portions of this note were created with voice recognition technology. There may be grammatical, spelling, punctuation or sound alike errors 07/08/25 05:08 Counseled pt/family regarding: diagnosis, rad results - Departure Departure Disposition: Home Clinical Impression: Fall, Rib contusion, Calcified lung nodule, Hepatic cyst Condition: Stable Critical Care Time: No Referrals: RAGINI GRAY MD [Primary Care Provider, [facility]] - Follow up/PCP as directed Additional Instructions: Discharge/Care Plan AGUSTO NICHOLS was seen on 07/08/25 in the Emergency Room. The patient was counseled regarding Diagnosis,Lab results, Imaging studies, need for follow up and when to return to the Emergency Room. Prescriptions given: Discharge Note I have spoken with the patient and/or caregivers. I have explained the patient's condition, diagnosis and treatment plan based on the information available to me at this time. I have answered the patient's and/or caregiver's questions and addressed any concerns. The patient and/or caregivers have as good understanding of the patient's diagnosis, condition and treatment plan as can be expected at this point. The vital signs have been stable. The patient's condition is stable and appropriate for discharge from the emergency department. The patient will pursue further outpatient evaluation with the primary care physician or other designated or consulting physician as outlined in the discharge instructions. The patient and/or caregivers are agreeable to this plan of care and follow-up instructions have been explained in detail. The patient and/or caregivers have received these instruction. The patient/and or caregivers are aware that any significant change in condition or worsening of symptoms should prompt an immediate return to this or the closest emergency department or call 911.
--- NOTE | 2025-07-08 04:55 | XRAY ---
CLINICAL HISTORY: pain COMPARISON: None. TECHNIQUE: Contiguous axial images were obtained from the neck base through the upper abdomen without contrast. In addition, sagittal and coronal reconstructions were performed to potentially increase the sensitivity for the detection of disease. CT scan was performed according to ALARA (as low as reasonable achievable). FINDINGS: Metallic artifacts are seen arising from a metallic body in the cardia. A calcified nodule measuring 7mm is seen in the posterior basal segment of left lower lobe. Rest of the lungs are clear, with no focal areas of consolidation. The central airways are patent. There are no pleural effusions. No pneumothorax is seen. Evaluation of the mediastinum and [place] is limited due to the lack of intravenous contrast. No axillary or mediastinal adenopathy is identified. The heart, aorta, and pulmonary arteries are of normal size and configuration. There are appreciable coronary artery and aortic atherosclerotic calcifications. No pericardial effusion is identified. The thyroid is unremarkable. No aggressive appearing osseous lesions are identified. Well defined hepatic cystic lesions are seen in both the lobes. Calcified nodules are seen in the liver as well as spleen. IMPRESSION: Calcified nodule in left lower lobe. Rest of the lungs are clear, with no focal areas of consolidation. Electronically Signed by: Zay Wynn MD. (07/08/2025 04:55:01 EST)
[2025-07-08 05:01] VITALS: BP 132/59; PULSE 50; RESP 19
== END 2025-07-08 05:20 | disposition home or self-care (01) ==
LOC: ED 03:28
DX: S20.212A Contusion of left front wall of thorax, initial encounter (principal); W19.XXXA Unspecified fall, initial encounter; I10 Essential (primary) hypertension; E11.9 Type 2 diabetes mellitus without complications; Z79.84 Long term (current) use of oral hypoglycemic drugs; Z79.899 Other long term (current) drug therapy; Z72.0 Tobacco use